=== PATIENT | female | born 1945 | race Caucasian/White ===

== ENCOUNTER → 2018-05-23 13:40 | Outpatient (CLI) | payer MEDICARE, SELFPAY | PROVIDERS: Family Provider Family Medicine; PCP Family Medicine; Visit Provider Family Medicine | DX: J44.1 Chronic obstructive pulmonary disease with (acute) exacerbation (principal) | CPT/HCPCS: 87070; 87205 ==

== ENCOUNTER → 2018-09-03 11:12 | Outpatient (CLI) | payer MEDICARE, SELFPAY ==
[2018-09-03 12:00] LABS: Influenza A and B by PCR Rapid Negative (Negative)
== END ==
PROVIDERS: Family Provider Family Medicine; PCP Family Medicine; Visit Provider Family Medicine
DX: J11.1 Influenza due to unidentified influenza virus with other respiratory manifestations (principal)
CPT/HCPCS: 87400

== ENCOUNTER → 2019-05-15 09:11 | Outpatient (CLI) | payer MEDICARE, SELFPAY ==
[2019-05-15 10:17] LABS: BUN Creatinine Ratio 22.5 (6-22); Blood Urea Nitrogen 9 mg/dL (7-17); Calcium 9.3 mg/dL (8.4-10.2); Carbon Dioxide 39 mmol/L (22-32); Chloride 97 mmol/L (98-107); Estimated Glomerular Filt Rate > 60.0 mL/min (>60); Glucose 103 mg/dL (80-110); HEMOLYSIS < 15 (0-50); Potassium 4.3 mmol/L (3.4-5.1); Sodium 141 mmol/L (137-145)
== END ==
PROVIDERS: PCP Family Medicine; Visit Provider Family Medicine
DX: I87.303 Chronic venous hypertension (idiopathic) without complications of bilateral lower extremity (principal)
CPT/HCPCS: 36415; 80048

== ENCOUNTER → 2019-11-23 12:53 | Outpatient (CLI) | payer MEDICARE, SELFPAY ==
[2019-11-23 15:23] LABS: BUN Creatinine Ratio 23.6 (6-22); Blood Urea Nitrogen 13 mg/dL (7-17); Calcium 9.6 mg/dL (8.4-10.2); Chloride 92 mmol/L (98-107); Estimated Glomerular Filt Rate > 60.0 mL/min (>60); Glucose 135 mg/dL (80-110); HEMOLYSIS < 15 (0-50); Potassium 4.1 mmol/L (3.4-5.1); Sodium 137 mmol/L (137-145)
[2019-11-23 15:29] LABS: Carbon Dioxide 37 mmol/L (22-32)
[2019-11-23 15:31] LABS: NT-proBNP (BNP-Adult 18+) 123 pg/mL (<125)
== END ==
PROVIDERS: PCP Family Medicine; Referring Provider Family Medicine; Visit Provider Family Medicine
DX: I87.303 Chronic venous hypertension (idiopathic) without complications of bilateral lower extremity (principal); J96.10 Chronic respiratory failure, unspecified whether with hypoxia or hypercapnia; R03.0 Elevated blood-pressure reading, without diagnosis of hypertension; F44.1 Dissociative fugue; R06.2 Wheezing
CPT/HCPCS: 36415; 80048; 83880

== ENCOUNTER → 2019-12-14 09:55 | Outpatient (CLI) | payer MEDICARE, SELFPAY ==
--- NOTE | 2019-12-14 | DI.CT.S_ITS ---
PROCEDURE: CT SINUS SCREEN WO CON INDICATIONS: Chronic rhinitis TECHNIQUE: Noncontrast 3.0 mm axial images acquired from the frontal sinuses to the mid-sella, with coronal and sagittal reformats. For radiation dose reduction, the following was used: automated exposure control, adjustment of mA and/or kV according to patient size. COMPARISON: [facility], CT, SINUS SCREEN WO CONTRAST, 05/21/2014, 12:38. FINDINGS: Image quality: Excellent. Mild right maxillary sinus mucosal thickening. Ethmoid Air Cells: No bony remodeling or destruction. Sinuses are clear. Sphenoid Sinuses: No bony remodeling or destruction. Sinuses are clear. Frontal Sinuses: No bony remodeling or destruction. Sinuses are clear. Ostiomeatal Complexes: Ostiomeatal complexes are patent. No Heather cells. Miscellaneous: Visualized intra-orbital contents are normal. No sunita bullosa or paradoxical turbinate curvature. No nasal septal deviation. IMPRESSION: Mild right maxillary sinus disease, improved since 05/21/14. Remaining paranasal sinuses clear Dictated by: Israel Jordan M.D. on 12/14/2019 at 10:51 Approved by: Israel Jordan M.D. on 12/14/2019 at 11:02
== END ==
PROVIDERS: PCP Family Medicine; Referring Provider Otolaryngology; Visit Provider Otolaryngology
DX: J32.8 Other chronic sinusitis (principal); J31.0 Chronic rhinitis; J34.89 Other specified disorders of nose and nasal sinuses; R51 Headache
CPT/HCPCS: 70486

== ENCOUNTER → 2020-01-06 09:47 | Outpatient (CLI) | payer MEDICARE, SELFPAY | PROVIDERS: PCP Family Medicine; Referring Provider Family Medicine; Visit Provider Family Medicine | DX: J44.9 Chronic obstructive pulmonary disease, unspecified (principal) | CPT/HCPCS: 87070; 87205 ==

== ENCOUNTER 2020-01-18 10:37 | Emergency (ER) | payer MEDICARE, SELFPAY ==
[2020-01-18] VITALS (8 sets, daily range): BP systolic 141–185; BP diastolic 71–84; PULSE 108–120; RESP 20–22; TEMP 36.4; O2SAT 90–94
--- NOTE | 2020-01-18 11:39 | ED_ITS ---
HPI - Epistaxis General Chief complaint: Nasal Problem Stated complaint: Nosebleed Time Seen by Provider: 01/18/20 10:45 Source: patient Mode of arrival: EMS Limitations: no limitations History of Present Illness HPI Narrative: Patient is a 74-year-old female on aspirin who presents with left sided epistaxis. she prior history of epistaxis but this past, this 1 started this morning. Quite severe in going down her throat. She is on home oxygen for COPD but has a humidifier at home Related Data Home Medications Medication Instructions Recorded Confirmed ASPIRIN (#ASPIRIN) 81 mg PO QDAY #0 05/10/11 01/04/20 fluticasone propionate 1 spray INTRANASAL BID #0 05/02/16 01/04/20 Previous Rx's Medication Instructions Recorded Disabled Parking Permit #1 ea 05/30/18 albuterol sulfate 90 mcg/actuation 2 puff INHALATION Q4HP PRN #6 inh 11/10/18 aerosol inhaler budesonide-formoterol HFA 160 2 puff INHALATION BID #30 gm 09/18/19 mcg-4.5 mcg/actuation aerosol inhaler potassium chloride 20 mEq 10 meq PO .COMPLEX #0 tab 10/02/19 tablet,extended release(part/cryst) azithromycin 250 mg tablet 250 mg PO 3XW #36 tab 10/28/19 famotidine 20 mg tablet 20 mg PO BID #60 tab 10/28/19 tiotropium bromide 18 mcg capsule 18 mcg INHALATION QDAY #90 11/11/19 with inhalation device inhalation furosemide 20 mg tablet 40 mg PO QDAY #180 tab 11/20/19 prednisone 10 mg tablet 20 mg PO DAILY #60 tab 01/04/20 amoxicillin 875 mg-potassium 1 tab PO BID #20 tab 01/08/20 clavulanate 125 mg tablet ipratropium bromide 0.03 % nasal 2 spray NASAL BID #30 ml 01/15/20 spray Allergies Allergy/AdvReac Type Severity Reaction Status Date / Time No Known Allergies Allergy Uncoded 01/04/20 11:46 Review of Systems Review of Systems Narrative: GENERAL: Denies chills,fever HEENT: See HPI RESPIRATORY: Denies dyspnea, cough, wheezing CARDIOVASCULAR: Denies chest pain, palpitations GASTROINTESTINAL: Denies nausea, vomiting MUSCULOSKELETAL: Denies extremity pain, injury SKIN: No rash, no laceration, no pruritus NEUROLOGIC: Denies weakness, dizziness, headache, numbness 8 point review of systems is negative except for those stated above and HPI Patient History Medical History (Updated 01/18/20 @ 12:51 by Rhonda Salgado DO) Asthma (Chronic ~2000) Boils (Resolved 2013) Cataract (Resolved 2012) COPD (chronic obstructive pulmonary disease) (Chronic ~2000) Measles (Resolved 1963) Pelvis fracture (Resolved ~1950) Rubella (Resolved) Surgical History Anesthesia (Resolved) H/O flexible sigmoidoscopy (Resolved 11/03/98) History of cataract removal with insertion of prosthetic lens (Resolved 06/17/12 ) History of cataract removal with insertion of prosthetic lens (Resolved 07/01/12) History of dental surgery (Resolved ~1982) Family History Brother Age: 78 Skin cancer Father Colon cancer Mother Lung cancer Breast cancer Sister Age: 77 Skin cancer Social History Smoking Status: Former smoker Smoking Status: Former smoker Substance Use Type: does not use Exam Initial Vital Signs Initial Vital Signs: Vital Signs Temperature 97.6 F 01/18/20 11:00 Pulse Rate 108 H 01/18/20 11:00 Respiratory Rate 22 01/18/20 11:00 Blood Pressure 177/84 H 01/18/20 11:00 Pulse Oximetry 92 01/18/20 11:00 GENERAL: Well-appearing, well-nourished and in no acute distress. CARDIOVASCULAR: peripheral pulses in tact, cap refill <2 sec RESPIRATORY: No respiratory distress, speaks in full sentences without difficulty [ABDOMEN: Soft, nontender, no guarding or rebound] EXTREMITIES: Normal range of motion, no clubbing or edema. Neurovascularly intact NEUROLOGICAL: Cranial nerves II through XII grossly intact. Normal gait and speech. SKIN: Warm, dry, no petechiae, no rashes or lesions. Procedures Epistaxis Control Time Out Performed: Yes Nostril: left Nose Prepped With: oxymetazoline Cautery Used: silver nitrate Device Inserted: hemostatic balloon Patient Tolerated Procedure: well Complications: other (Initial posterior nasal balloon use. Patient continues to have some oozing but overall significant improvement. Silver nitrate used to cauterize) Course Orders Ordered: Discontinued Medications Oxymetazoline HCl (Afrin) 2 sprays NASAL NOW ONE Stop: 01/18/20 11:29 Last Admin: 01/18/20 11:51 Dose: 2 sprays Documented by: SCOTTIE Silver Nitrate/Potassium Nitrate (Silver Nitrate Stick) 1 each TOP NOW ONE Stop: 01/18/20 12:40 Last Admin: 01/18/20 12:44 Dose: 1 each Documented by: SCOTTIE Vital Signs Vital signs: Vital Signs - 8 hr 01/18/20 11:00 01/18/20 11:20 01/18/20 11:30 Temperature 97.6 F Pulse Rate 108 H 116 H 120 H Respiratory Rate 22 Blood Pressure 177/84 H 185/82 H Pulse Oximetry 92 90 L 91 01/18/20 12:00 01/18/20 12:01 01/18/20 12:07 Temperature Pulse Rate 113 H 116 H 114 H Respiratory Rate Blood Pressure 141/71 H Pulse Oximetry 92 92 93 01/18/20 12:30 01/18/20 13:15 Temperature Pulse Rate 115 H 115 H Respiratory Rate 20 Blood Pressure 152/80 H 165/71 H Pulse Oximetry 93 94 MDM - Epistaxis MDM Narrative Medical decision making narrative: Epistaxis controlled after silver nitrate. Patient is using a humidifier at home she is on chronic O2 for COPD. Recommend using her O2 mask for a bit. Discharge Plan Departure Patient Disposition: Home Clinical Impression: Acute anterior epistaxis Discharge Date/Time: 01/18/20 13:15 Instructions: DI for Nosebleed Activity Restrictions/Additional Instructions: *You have been diagnosed with nose bleed *What to do: With recommend using your mask for oxygen for the next day or so be sure to use your nasal humidifier. If bleeding starts again place clamp and tilt head forward is hold pressure for 20-30 minutes. If continuing to bleed or going down throat and severe nosebleed return to ER *Continue to take medications as directed *Follow up with your primary care provider in 2-3 days *Return to ER if you should have persistent nose bleed despite actions above, difficulty breathing or any new, worsening or concerning symptoms Prescriptions: No Action ASPIRIN (#ASPIRIN) 81 mg PO QDAY Qty: 0 RF: 0 fluticasone propionate 16 GM spray,suspension 1 spray Intranasal BID Qty: 0 RF: 0 albuterol sulfate [Ventolin HFA] 90 mcg/actuation HFA aerosol inhaler 2 puff INHALATION Q4HP PRN (Reason: shortness of breath or wheezing) Qty: 6 RF: 3 Symbicort 160-4.5 mcg/actuation HFA aerosol inhaler 2 puff Inhalation BID Qty: 30 RF: 3 potassium chloride [Klor-Con M20] 20 mEq tablet,ER particles/crystals 10 meq PO .COMPLEX Qty: 0 RF: 1 azithromycin 250 mg tablet 250 mg PO 3XW Qty: 36 RF: 0 Hold Instructions: treating acute sinusitus amoxicillin-pot clavulanate [Augmentin] 875-125 mg tablet 1 tab PO BID Qty: 20 RF: 0 ipratropium bromide 0.03 % spray,non-aerosol 2 spray NASAL BID Qty: 30 RF: 5 (DME) Disabled Parking Permit Qty: 1 RF: 0 Spiriva with HandiHaler 18 mcg capsule, w/inhalation device 18 mcg INHALATION QDAY Qty: 90 RF: 3 famotidine 20 mg tablet 20 mg PO BID Qty: 60 RF: 1 furosemide [Lasix] 20 mg tablet 40 mg PO QDAY Qty: 180 RF: 1 prednisone 10 mg tablet 20 mg PO DAILY Qty: 60 RF: 0 Referrals: Lyndsay Ruelas DO [Primary Care Provider] -
--- NOTE | 2020-01-18 11:42 | PC.NURSE ---
suction at bedside, pt understands how to use yanker. Caleb, [employer] has provided afrin to nares.
[2020-01-18] MEDS: OXYMETAZOLINE NASAL SPRAY 30 ML 2 SPRAYS NASAL (11:51)
[2020-01-18] MEDS: SILVER NITRATE STICK 1 EACH TOP (12:44)
== END 2020-01-18 13:15 | disposition home or self-care (01) ==
PROVIDERS: Emergency Provider Emergency Medicine; PCP Family Medicine
DX: R04.0 Epistaxis (principal); J44.9 Chronic obstructive pulmonary disease, unspecified; Z79.82 Long term (current) use of aspirin
CPT/HCPCS: 30905; 99282

== ENCOUNTER 2020-02-10 16:47 | Emergency (ER) | payer MEDICARE, SELFPAY ==
[2020-02-10 16:50] VITALS: BP 178/80; PULSE 107; RESP 22; TEMP 36.1; O2SAT 97
--- NOTE | 2020-02-10 16:59 | DI.RAD.S_ITS ---
PROCEDURE: XR CHEST 2V INDICATIONS: shortness of breath TECHNIQUE: 2 views of the chest were acquired. COMPARISON: [facility], CHEST 2 VIEW, 03/21/2016, 11:41. [facility], CHEST 2 VIEW, 02/28/2015, 10:56. FINDINGS: Surgical changes and devices: None. Lungs and pleura: Lungs are abnormal, with pulmonary hyperexpansion consistent with severe COPD. No pleural effusions or pneumothorax. Mediastinum: Mediastinal contours are normal. Heart size is normal. Bones and chest wall: No suspicious bony abnormalities. Soft tissues appear unremarkable. IMPRESSION: Severe COPD, no definite acute disease with reference to prior studies in this patient with longstanding smoking history and mild interstitial prominence. A mass lesion or focal pneumonia is not found. Dictated by: Korey Ty M.D. on 02/10/2020 at 17:28 Approved by: Korey Ty M.D. on 02/10/2020 at 17:29
[2020-02-10 17:21] LABS: Add Manual Diff / Slide Review NO; Basophils Absolute Auto 0 /uL (0-100); Basophils Percent Auto 0.4 % (0-2); Eosinophils Absolute Auto 0 /uL (0-450); Eosinophils Percent Auto 0.1 % (2-4); Hematocrit 40.3 % (36-46); Hemoglobin 13.2 g/dL (12.0-16.0); Lymphocytes Absolute Auto 1000 /uL (1100-4500); Lymphocytes Percent Auto 8.9 % (25-40); Mean Corpuscular HGB Conc 32.7 % (30-36); Mean Corpuscular Hemoglobin 30.5 PG (26-34); Mean Corpuscular Volume 93.5 fL (80-100); Monocytes Absolute Auto 300 /uL (0-900); Monocytes Percent Auto 2.9 % (3-14); Neutrophils Absolute Auto 9500 /uL (1500-7000); Neutrophils Percent Auto 87.7 % (50-75); Platelet Count 270 X10^3/uL (150-400); Red Blood Cell Count 4.31 X10^6/uL (4.0-5.2); Red Cell Distribution Width 13.6 % (11.6-14.8); White Blood Cell Count 10.9 X10^3/uL (4.5-11.0)
[2020-02-10 17:33] LABS: Alanine Aminotransferase 21 IU/L (<35); Albumin 3.9 g/dL (3.5-5.0); Albumin Globulin Ratio 1.3 (1.0-2.8); Alkaline Phosphatase 70 U/L (38-126); Aspartate Aminotransferase 25 IU/L (14-36); BUN Creatinine Ratio 24.5 (6-22); Bilirubin Total 0.5 mg/dL (0.2-1.3); Blood Urea Nitrogen 13 mg/dL (7-17); Chloride 93 mmol/L (98-107); Estimated Glomerular Filt Rate > 60.0 mL/min (>60); Globulin 2.9 g/dL (1.7-4.1); Glucose 141 mg/dL (80-110); HEMOLYSIS < 15 (0-50); Lactate (Lactic Acid) 1.2 mmol/L (0.7-2.1); Potassium 4.3 mmol/L (3.4-5.1); Sodium 135 mmol/L (137-145); Total Protein 6.8 g/dL (6.3-8.2)
[2020-02-10 17:34] VITALS: BP 146/73
[2020-02-10] MEDS: IPRATROPIUM/ALBUTEROL PREPACK 1 BOX MISC (17:38)
[2020-02-10 17:39] VITALS: PULSE 108; RESP 22; O2SAT 93
[2020-02-10 17:39] LABS: Carbon Dioxide 36 mmol/L (22-32)
[2020-02-10 19:00] VITALS: BP 140/65; PULSE 97; RESP 23; O2SAT 98
--- NOTE | 2020-02-10 19:19 | ED.GENADULT ---
HPI - General Adult General Chief complaint: Shortness of Breath/Dyspnea Stated complaint: not breathing well Time Seen by Provider: 02/10/20 17:11 Source: patient Mode of arrival: Ambulatory Limitations: no limitations History of Present Illness HPI narrative: 74-year-old female with a history of COPD. Is on oxygen at home here for evaluation of episodes that she has been having for some time now. She describes the episodes as havingA thick white substance in her mouth. She states that she is not coughing the substance up. She states that she thinks it may be coming from her nasal passages. She states that her throat is very dry. She denies any fevers. No chest pain. She states she has talk with her primary doctor about this. She is on humidification with her nasal cannula. Has seen ENT. Has not seen dental. She states that primary doctor thinks that it may be the steroids she is on for her COPD however when she tries to taper off of the steroids she has worsening COPD symptoms. Related Data Home Medications Medication Instructions Recorded Confirmed ASPIRIN (#ASPIRIN) 81 mg PO QDAY #0 05/10/11 02/03/20 Previous Rx's Medication Instructions Recorded Disabled Parking Permit #1 ea 05/30/18 albuterol sulfate 90 mcg/actuation 2 puff INHALATION Q4HP PRN #6 inh 11/10/18 aerosol inhaler budesonide-formoterol HFA 160 2 puff INHALATION BID #30 gm 09/18/19 mcg-4.5 mcg/actuation aerosol inhaler potassium chloride 20 mEq 10 meq PO .COMPLEX #0 tab 10/02/19 tablet,extended release(part/cryst) famotidine 20 mg tablet 20 mg PO BID #60 tab 10/28/19 tiotropium bromide 18 mcg capsule 18 mcg INHALATION QDAY #90 11/11/19 with inhalation device inhalation furosemide 20 mg tablet 40 mg PO QDAY #180 tab 11/20/19 ipratropium bromide 0.03 % nasal 2 spray NASAL BID #30 ml 01/15/20 spray azithromycin 250 mg tablet 250 mg PO 3XW #36 tab 01/27/20 prednisone 20 mg tablet 30 mg PO DAILY #60 tab 02/09/20 Allergies Allergy/AdvReac Type Severity Reaction Status Date / Time No Known Drug Allergies Allergy Verified 02/10/20 17:18 Review of Systems Constitutional Constitutional: Denies fever(s) and Denies headache(s) ENT Ears, Nose, Mouth, and Throat: Reports otalgia, Denies headache(s), Reports epistaxis, Reports sinus pressure and Reports sore throat Comments: Dry mouth Cardiovascular Cardiovascular: Denies chest pain and Reports dyspnea Respiratory Respiratory: Denies cough and Reports dyspnea Gastrointestinal Gastrointestinal: Denies nausea and Denies vomiting Integumentary/Breasts Skin/Breast: Denies rash Neurologic Neurologic: Denies behavioral changes and Denies headache(s) Psychiatric Psychiatric: Denies behavioral changes Hematologic/Lymphatic Hematologic/Lymphatic: Denies easy bleeding and Denies easy bruising Patient History Medical History Asthma (Chronic ~2000) Boils (Resolved 2013) Cataract (Resolved 2012) COPD (chronic obstructive pulmonary disease) (Chronic ~2000) Measles (Resolved 1963) Pelvis fracture (Resolved ~1950) Rubella (Resolved) Surgical History Anesthesia (Resolved) H/O flexible sigmoidoscopy (Resolved 11/03/98) History of cataract removal with insertion of prosthetic lens (Resolved 06/17/12) History of cataract removal with insertion of prosthetic lens (Resolved 07/01/12) History of dental surgery (Resolved ~1982) Family History Brother Age: 79 Skin cancer Father Colon cancer Mother Lung cancer Breast cancer Sister Age: 78 Skin cancer Social History Smoking Status: Former smoker Smoking Status: Former smoker Substance Use Type: does not use Exam Initial Vital Signs Initial Vital Signs: Vital Signs Temperature 96.9 F L 02/10/20 16:50 Pulse Rate 107 H 02/10/20 16:50 Respiratory Rate 22 02/10/20 16:50 Blood Pressure 178/80 H 02/10/20 16:50 Pulse Oximetry 97 02/10/20 16:50 Const Limitations: mental status not altered HENMT Head: normal to inspection and normocephalic Ears: TM's normal bilaterally Nose: external nose normal Face and sinus: normal facial exam Mouth: lip normal, tongue normal, No moist mucous membranes and No drooling Throat: posterior oropharynx normal Resp Effort & Inspection: not labored and tachypneic Cardio Rate: regular rate Skin Lesions: no lesions Rashes: no rashes Extrem General: normal to inspection, capillary refill normal and No edema Psych Appearance: grossly normal and well kempt Course Orders Ordered: ED Orders 02/10/20 16:59 XR chest 2V Stat EKG-12 Lead Stat Measure peak expiratory flow ONCE RT Consult Eval and Treat Now 02/10/20 17:15 Complete Blood Count AUTO DIFF Stat Comprehensive Metabolic Panel Stat Lactate (Lactic Acid) Stat Discontinued Medications Albuterol/Ipratropium (Combivent Prepack) 1 box MISC SEEINSTR ONE Stop: 02/10/20 17:16 Last Admin: 02/10/20 17:38 Dose: 1 box Documented by: MAX Vital Signs Vital signs: Vital Signs - 8 hr 02/10/20 19:00 Pulse Rate 97 H Respiratory Rate 23 Blood Pressure 140/65 Pulse Oximetry 98 Medical Decision Making Lab Data Lab results reviewed: Yes I reviewed the patient's lab results. Result diagrams: 02/10/20 17:15 02/10/20 17:15 Labs: Lab Results 02/10/20 02/10/20 02/10/20 Range/Units 17:15 17:15 17:15 WBC 10.9 (4.5-11.0) X10^3/uL RBC 4.31 (4.0-5.2) X10^6/uL Hgb 13.2 (12.0-16.0) g/dL Hct 40.3 (36-46) % MCV 93.5 (80-100) fL MCH 30.5 (26-34) PG MCHC 32.7 (30-36) % RDW 13.6 (11.6-14.8) % Plt Count 270 (150-400) X10^3/uL Neut % (Auto) 87.7 H (50-75) % Lymph % (Auto) 8.9 L (25-40) % [place] % (Auto) 2.9 L (3-14) % Eos % (Auto) 0.1 L (2-4) % Baso % (Auto) 0.4 (0-2) % Neut # (Auto) 9500 H (4124-3169) /uL Lymph # (Auto) 1000 L (3906-9619) /uL [place] # (Auto) 300 (0-900) /uL Eos # (Auto) 0 (0-450) /uL Baso # (Auto) 0 (0-100) /uL Sodium 135 L (137-145) mmol/L Potassium 4.3 (3.4-5.1) mmol/L Chloride 93 L (98-107) mmol/L Carbon Dioxide 36 H (22-32) mmol/L BUN 13 (7-17) mg/dL Creatinine 0.53 (0.52-1.04) mg/dL Estimated GFR > 60.0 (>60) mL/min BUN/Creatinine Ratio 24.5 H (6-22) Glucose 141 H (80-110) mg/dL Lactate 1.2 (0.7-2.1) mmol/L Calcium 9.0 (8.4-10.2) mg/dL Total Bilirubin 0.5 (0.2-1.3) mg/dL AST 25 (14-36) IU/L ALT 21 (<35) IU/L Alkaline Phosphatase 70 (38-126) U/L Total Protein 6.8 (6.3-8.2) g/dL Albumin 3.9 (3.5-5.0) g/dL Globulin 2.9 (1.7-4.1) g/dL Albumin/Globulin Ratio 1.3 (1.0-2.8) Imaging Data Chest x-ray: Radiologist's Impression: [address] [address] XRay Report Signed Patient: Dorothy Metzger MMR#: [id number] : [id number]:[id number] Age/Sex: 74 / FDate of Service: 02/10/20 Loc: ED Accession Number: [id number] Procedure: XR chest 2V Ordering Provider: Raissa Fontanez MD PROCEDURE: XR CHEST 2V INDICATIONS: shortness of breath TECHNIQUE: 2 views of the chest were acquired. COMPARISON: [facility], CHEST 2 VIEW, 03/21/2016, 11:41. [facility], CHEST 2 VIEW, 02/28/2015, 10:56. FINDINGS: Surgical changes and devices: None. Lungs and pleura: Lungs are abnormal, with pulmonary hyperexpansion consistent with severe COPD. No pleural effusions or pneumothorax. Mediastinum: Mediastinal contours are normal. Heart size is normal. Bones and chest wall: No suspicious bony abnormalities. Soft tissues appear unremarkable. IMPRESSION: Severe COPD, no definite acute disease with reference to prior studies in this patient with longstanding smoking history and mild interstitial prominence. A mass lesion or focal pneumonia is not found. Dictated by: Korey Ty M.D. on 02/10/2020 at 17:28 Approved by: Korey Ty M.D. on 02/10/2020 at 17:29 [facility] Narrative Medical decision making narrative: Patient reports that she is at her baseline respiratory status. She is not having any fevers. She is on oxygen at home. The reason she is here is because she is having a very dry mouth and a thick white sputum. She is not coughing. After long discussion with the patient appears that the symptoms that brought her into the ER today are not necessarily new for her. She is on decongestants. She is also on nasal steroids. She is also on prednisone. The suspect that all of the steroids are causing dry mouth she is also on humidified oxygen which being on oxygen is self causes these issues as well. She has seen ENT about the symptoms in was told that there is little that they can do. She has not seen her dentist. She has tried to taper off the steroids under the direction of her primary doctor but then and her COPD worsens. Unfortunately I am not sure if there is much more we can offer under the emergency department. We did discuss other mouth rinses to include biotene. Patient can purchase this [id number]. I also recommended that she contact her dentist is May. Dentist would have another opinion about what she can try. I do not feel the patient needs admitted to the hospital. No indication for antibiotics. Patient was given return precautions. She expressed understanding and agreement. Discharge Plan Departure Patient Disposition: Home Clinical Impression: Dry mouth Discharge Date/Time: 02/10/20 19:30 Activity Restrictions/Additional Instructions: A throat culture was obtained today and is pending at the time of your discharge. This does take a couple days to come back. I recommend that you try Biotene. This is a mouthwash that can be purchased [id number]. This may help with the dry mouth. Contact your primary provider for follow-up. Return to the emergency department for any new or worsening symptoms Prescriptions: No Action ASPIRIN (#ASPIRIN) 81 mg PO QDAY Qty: 0 RF: 0 albuterol sulfate [Ventolin HFA] 90 mcg/actuation HFA aerosol inhaler 2 puff INHALATION Q4HP PRN (Reason: shortness of breath or wheezing) Qty: 6 RF: 3 Symbicort 160-4.5 mcg/actuation HFA aerosol inhaler 2 puff Inhalation BID Qty: 30 RF: 3 potassium chloride [Klor-Con M20] 20 mEq tablet,ER particles/crystals 10 meq PO .COMPLEX Qty: 0 RF: 1 ipratropium bromide 0.03 % spray,non-aerosol 2 spray NASAL BID Qty: 30 RF: 5 azithromycin 250 mg tablet 250 mg PO 3XW Qty: 36 RF: 0 Hold Instructions: treating acute sinusitus prednisone 20 mg tablet 30 mg PO DAILY Qty: 60 RF: 0 (DME) Disabled Parking Permit Qty: 1 RF: 0 Spiriva with HandiHaler 18 mcg capsule, w/inhalation device 18 mcg INHALATION QDAY Qty: 90 RF: 3 famotidine 20 mg tablet 20 mg PO BID Qty: 60 RF: 1 furosemide [Lasix] 20 mg tablet 40 mg PO QDAY Qty: 180 RF: 1 Referrals: Lyndsay Ruelas DO [Primary Care Provider] -
== END 2020-02-10 19:30 | disposition home or self-care (01) ==
PROVIDERS: Emergency Medicine; Emergency Provider Emergency Medicine; PCP Family Medicine
DX: R68.2 Dry mouth, unspecified (principal); J44.9 Chronic obstructive pulmonary disease, unspecified
CPT/HCPCS: 36415; 71046; 80053; 83605; 85025; 93005; 94150; 94640; 99284

== ENCOUNTER → 2020-02-15 11:55 | Outpatient (CLI) | payer MEDICARE, SELFPAY | PROVIDERS: PCP Family Medicine; Visit Provider Family Medicine | DX: R68.2 Dry mouth, unspecified (principal) | CPT/HCPCS: 87070 ==

== ENCOUNTER 2020-02-21 18:14 | Emergency (ER) | payer MEDICARE, SELFPAY ==
[2020-02-21] VITALS (20 sets, daily range): BP systolic 134–180; BP diastolic 67–84; PULSE 84–108; RESP 20–30; TEMP 36.9; O2SAT 95–100
--- NOTE | 2020-02-21 18:28 | DI.RAD.S_ITS ---
PROCEDURE: XR CHEST 2V INDICATIONS: shortness of breath TECHNIQUE: 2 views of the chest were acquired. COMPARISON: [facility], CR, XR CHEST 2V, 02/10/2020, 16:49. FINDINGS: Surgical changes and devices: None. Lungs and pleura: Lungs are clear. Azygos lobe redemonstrated. No pleural effusions or pneumothorax. Mediastinum: Mediastinal contours are normal. Heart size is normal. Bones and chest wall: No suspicious bony abnormalities. Soft tissues appear unremarkable. IMPRESSION: No acute cardiopulmonary findings. Dictated by: Jennifer Kasper M.D. on 02/21/2020 at 19:29 Approved by: Jennifer Kasper M.D. on 02/21/2020 at 19:29
[2020-02-21 18:44] LABS: Add Manual Diff / Slide Review NO; Basophils Absolute Auto 0 /uL (0-100); Basophils Percent Auto 0.3 % (0-2); Eosinophils Absolute Auto 0 /uL (0-450); Eosinophils Percent Auto 0.3 % (2-4); Hematocrit 39.3 % (36-46); Hemoglobin 12.8 g/dL (12.0-16.0); Lymphocytes Absolute Auto 1500 /uL (1100-4500); Lymphocytes Percent Auto 11.2 % (25-40); Mean Corpuscular HGB Conc 32.5 % (30-36); Mean Corpuscular Hemoglobin 30.6 PG (26-34); Mean Corpuscular Volume 94.2 fL (80-100); Monocytes Absolute Auto 800 /uL (0-900); Monocytes Percent Auto 5.9 % (3-14); Neutrophils Absolute Auto 11000 /uL (1500-7000); Neutrophils Percent Auto 82.3 % (50-75); Platelet Count 263 X10^3/uL (150-400); Red Blood Cell Count 4.17 X10^6/uL (4.0-5.2); Red Cell Distribution Width 13.5 % (11.6-14.8); White Blood Cell Count 13.4 X10^3/uL (4.5-11.0)
--- NOTE | 2020-02-21 18:45 | ED.SOB ---
HPI - SOB/Dyspnea General Chief Complaint: Shortness of Breath/Dyspnea Stated Complaint: cant breathe, shoulder/back pain Time Seen by Provider: 02/21/20 18:32 Source: patient Mode of arrival: Wheelchair Limitations: no limitations History of Present Illness HPI Narrative: 74-year-old woman with a history of reflux, asthma, 2 weeks of azithromycin discontinued February 18 with prednisone at 20 mg daily, as well as congestive heart failure with Lasix decreased from 40 mg to 20 mg on February 14, presents with increasing dyspnea over the course of today. She notes that since decreasing her Lasix her ankles are more swollen. She has not been significantly more dyspneic and has been stable on her usual 3 L of home oxygen until this afternoon. She notes that she was worse with exertion and then after laying down was dramatically worsened presents to the emergency room able to speak in full sentences but tripoding and using accessory muscles to breathe without significant wheezing appreciated. She has a history of leukoplakia and notes that every time she has more of the ?white stuff in her mouth? her breathing gets worse. She did note an increase in the ?white stuff in her mouth? today. A culture had been done of this on February 14 that reveals normal oral carlos. She also complains of significant right sided chest wall pain that is significant enough that is limiting her physical ability to breathe, she describes a itching sensation over the skin (no obvious rash to suggest zoster outbreak starting yet) Related Data Home Medications Medication Instructions Recorded Confirmed ASPIRIN (#ASPIRIN) 81 mg PO QDAY #0 05/10/11 02/15/20 Previous Rx's Medication Instructions Recorded Disabled Parking Permit #1 ea 05/30/18 albuterol sulfate 90 mcg/actuation 2 puff INHALATION Q4HP PRN #6 inh 11/10/18 aerosol inhaler budesonide-formoterol HFA 160 2 puff INHALATION BID #30 gm 09/18/19 mcg-4.5 mcg/actuation aerosol inhaler potassium chloride 20 mEq 10 meq PO .COMPLEX #0 tab 10/02/19 tablet,extended release(part/cryst) famotidine 20 mg tablet 20 mg PO BID #60 tab 10/28/19 tiotropium bromide 18 mcg capsule 18 mcg INHALATION QDAY #90 11/11/19 with inhalation device inhalation ipratropium bromide 0.03 % nasal 2 spray NASAL BID #30 ml 01/15/20 spray azithromycin 250 mg tablet 250 mg PO 3XW #36 tab 01/27/20 prednisone 20 mg tablet 30 mg PO DAILY #60 tab 02/09/20 prednisone 5 mg tablet 5 mg PO DAILY #6 tab 02/11/20 furosemide 20 mg tablet 20 mg PO QDAY #90 tab 02/15/20 omeprazole 40 mg capsule,delayed 40 mg PO DAILY #30 cap 02/15/20 release clotrimazole 10 mg MM 5XD #60 tab 02/22/20 Allergies Allergy/AdvReac Type Severity Reaction Status Date / Time No Known Drug Allergies Allergy Verified 02/21/20 18:43 Review of Systems Review of Systems Narrative: Pertinent positive and negative findings as per HPI Remainder of review of systems is otherwise unremarkable for Constitutional: Fevers, chills, weakness ENT: No sore throat, neck pain, ear pain CV: Chest pain, palpitations, GI: Nausea, vomiting, diarrhea, change in bowel habits, black or bloody stools : Dysuria, hematuria, flank pain MS: Muscle weakness, numbness, joint swelling or warmth Skin: Rashes, nonhealing lesions Neuro: Syncope, dizziness, tingling Patient History Medical History Asthma (Chronic ~2000) Boils (Resolved 2013) Cataract (Resolved 2012) COPD (chronic obstructive pulmonary disease) (Chronic ~2000) Dry mouth (Acute) Leukoplakia (Acute) Measles (Resolved 1963) Pelvis fracture (Resolved ~1950) Rubella (Resolved) Surgical History Anesthesia (Resolved) H/O flexible sigmoidoscopy (Resolved 11/03/98) History of cataract removal with insertion of prosthetic lens (Resolved 06/17/12) History of cataract removal with insertion of prosthetic lens (Resolved 07/01/12) History of dental surgery (Resolved ~1982) Family History Brother Age: 79 Skin cancer Father Colon cancer Mother Lung cancer Breast cancer Sister Age: 78 Skin cancer Social History Smoking Status: Former smoker Smoking Status: Former smoker Substance Use Type: does not use Exam Narrative Exam Narrative: General: 74-year-old woman sitting on the edge of the bed, try potting and complaining of difficulty breathing on the right side because of pain but Able to give a complete and coherent history. Well-nourished well-developed, and speaking in full sentences HEENT: Dry mucous membranes, he increased erythematous color to her tongue and buccal mucosa without obvious leukoplakia (most consistent with thrush), normal sclera with reactive pupils, Neck: No JVD, supple Respiratory: Lungs without wheezing, minor rales in both lower lung bullock, no rhonchi. Full and symmetrical air movement Chest: Area of itching over the right side of her back just below her scapula has no abnormal skin findings at this time Cardiac: Regular rate and rhythm no murmurs no bruits Abdomen: Soft nontender good bowel tones, no flank pain Skin: Warm and dry, no rashes Neurologic: Grossly neurologically intact with no obvious asymmetries or abnormalities Extremities: No trauma, well perfused, 2+ bilateral lower extremity edema Psych: Cooperative, somewhat anxious Initial Vital Signs Initial Vital Signs: Vital Signs Temperature 98.4 F 02/21/20 18:25 Pulse Rate 108 H 02/21/20 18:25 Respiratory Rate 30 H 02/21/20 18:25 Blood Pressure 134/84 02/21/20 18:25 Pulse Oximetry 96 02/21/20 18:25 Course Orders Ordered: ED Orders 02/21/20 18:28 XR chest 2V Stat EKG-12 Lead Stat Measure peak expiratory flow ONCE RT Consult Eval and Treat Now 02/21/20 18:35 Complete Blood Count AUTO DIFF Stat Comprehensive Metabolic Panel Stat D Dimer Stat Lactate (Lactic Acid) Stat NT-proBNP (BNP-Adult 18+) Stat 02/21/20 21:03 CT angio chest PE protocol Stat 02/21/20 21:15 Troponin I Stat Hydromorphone HCl (Dilaudid) 0.5 mg IV Q15MIN PRN PRN Reason: Pain, Last Admin: 02/21/20 21:32 Dose: 0.5 mg Documented by: GONZALO Discontinued Medications Furosemide (Lasix) 40 mg IV NOW ONE Stop: 02/21/20 21:09 Last Admin: 02/21/20 21:27 Dose: Not Given Documented by: GONZALO Furosemide (Lasix) 40 mg IV NOW ONE Stop: 02/21/20 21:23 Last Admin: 02/21/20 21:31 Dose: 40 mg Documented by: GONZALO Metoclopramide HCl (Reglan) 10 mg IV NOW ONE Stop: 02/21/20 23:24 Last Admin: 02/21/20 23:29 Dose: 10 mg Documented by: KAREN Ondansetron HCl (Zofran) 4 mg IV NOW ONE Stop: 02/21/20 22:05 Last Admin: 02/21/20 22:11 Dose: 4 mg Documented by: GONZALO Vital Signs Vital signs: Vital Signs - 8 hr 02/21/20 18:25 02/21/20 18:29 02/21/20 18:30 Temperature 98.4 F Pulse Rate 108 H 95 H 101 H Respiratory Rate 30 H Blood Pressure 134/84 Pulse Oximetry 96 95 96 02/21/20 18:32 02/21/20 19:00 02/21/20 19:30 Temperature Pulse Rate 100 H 86 90 Respiratory Rate Blood Pressure 134/84 Pulse Oximetry 96 99 99 02/21/20 20:00 02/21/20 20:30 02/21/20 20:31 Temperature Pulse Rate 92 H 91 H Respiratory Rate Blood Pressure 180/77 H 164/77 H Pulse Oximetry 100 100 100 02/21/20 21:00 02/21/20 21:01 02/21/20 21:33 Temperature Pulse Rate 103 H 95 H 103 H Respiratory Rate Blood Pressure 176/80 H Pulse Oximetry 100 100 98 02/21/20 21:42 02/21/20 22:00 02/21/20 22:34 Temperature Pulse Rate 96 H 102 H Respiratory Rate Blood Pressure 173/72 H 167/82 H Pulse Oximetry 97 95 02/21/20 22:35 02/21/20 23:00 02/21/20 23:01 Temperature Pulse Rate 101 H 98 H 84 Respiratory Rate Blood Pressure 155/72 H 167/71 H Pulse Oximetry 95 96 96 02/21/20 23:30 02/21/20 23:31 02/22/20 00:24 Temperature 97.6 F Pulse Rate 84 92 H 98 H Respiratory Rate 20 18 Blood Pressure 158/67 H 172/73 H Pulse Oximetry 95 95 99 MDM - SOB/Dyspnea Medical Records Attestation: I reviewed the patient's medical records. Lab Data Attestation: I reviewed the patient's lab results. Result diagrams: 02/21/20 18:35 02/21/20 18:35 Labs: Lab Results 02/21/20 02/21/20 02/21/20 Range/Units 18:35 18:35 18:35 WBC 13.4 H (4.5-11.0) X10^3/uL RBC 4.17 (4.0-5.2) X10^6/uL Hgb 12.8 (12.0-16.0) g/dL Hct 39.3 (36-46) % MCV 94.2 (80-100) fL MCH 30.6 (26-34) PG MCHC 32.5 (30-36) % RDW 13.5 (11.6-14.8) % Plt Count 263 (150-400) X10^3/uL Neut % (Auto) 82.3 H (50-75) % Lymph % (Auto) 11.2 L (25-40) % [place] % (Auto) 5.9 (3-14) % Eos % (Auto) 0.3 L (2-4) % Baso % (Auto) 0.3 (0-2) % Neut # (Auto) 86127 H (2674-1296) /uL Lymph # (Auto) 1500 (4790-0522) /uL [place] # (Auto) 800 (0-900) /uL Eos # (Auto) 0 (0-450) /uL Baso # (Auto) 0 (0-100) /uL D-Dimer (<230) ng/mL Sodium 136 L (137-145) mmol/L Potassium 4.2 (3.4-5.1) mmol/L Chloride 93 L (98-107) mmol/L Carbon Dioxide 39 H (22-32) mmol/L BUN 12 (7-17) mg/dL Creatinine 0.65 (0.52-1.04) mg/dL Estimated GFR > 60.0 (>60) mL/min BUN/Creatinine Ratio 18.5 (6-22) Glucose 106 (80-110) mg/dL Lactate 1.3 (0.7-2.1) mmol/L Calcium 9.3 (8.4-10.2) mg/dL Total Bilirubin 0.4 (0.2-1.3) mg/dL AST 26 (14-36) IU/L ALT 22 (<35) IU/L Alkaline Phosphatase 79 (38-126) U/L Troponin I (0.01-0.034) ng/mL NT-Pro-B Natriuret Pep (<125) pg/mL Total Protein 6.6 (6.3-8.2) g/dL Albumin 3.8 (3.5-5.0) g/dL Globulin 2.8 (1.7-4.1) g/dL Albumin/Globulin Ratio 1.4 (1.0-2.8) 02/21/20 02/21/20 02/21/20 Range/Units 18:35 18:35 21:15 WBC (4.5-11.0) X10^3/uL RBC (4.0-5.2) X10^6/uL Hgb (12.0-16.0) g/dL Hct (36-46) % MCV (80-100) fL MCH (26-34) PG MCHC (30-36) % RDW (11.6-14.8) % Plt Count (150-400) X10^3/uL Neut % (Auto) (50-75) % Lymph % (Auto) (25-40) % [place] % (Auto) (3-14) % Eos % (Auto) (2-4) % Baso % (Auto) (0-2) % Neut # (Auto) (0748-7524) /uL Lymph # (Auto) (8435-1672) /uL [place] # (Auto) (0-900) /uL Eos # (Auto) (0-450) /uL Baso # (Auto) (0-100) /uL D-Dimer 359 H (<230) ng/mL Sodium (137-145) mmol/L Potassium (3.4-5.1) mmol/L Chloride (98-107) mmol/L Carbon Dioxide (22-32) mmol/L BUN (7-17) mg/dL Creatinine (0.52-1.04) mg/dL Estimated GFR (>60) mL/min BUN/Creatinine Ratio (6-22) Glucose (80-110) mg/dL Lactate (0.7-2.1) mmol/L Calcium (8.4-10.2) mg/dL Total Bilirubin (0.2-1.3) mg/dL AST (14-36) IU/L ALT (<35) IU/L Alkaline Phosphatase (38-126) U/L Troponin I < 0.012 (0.01-0.034) ng/mL NT-Pro-B Natriuret Pep 219 H (<125) pg/mL Total Protein (6.3-8.2) g/dL Albumin (3.5-5.0) g/dL Globulin (1.7-4.1) g/dL Albumin/Globulin Ratio (1.0-2.8) Imaging Data Chest x-ray: Radiologist's Impression: FINDINGS: Surgical changes and devices: None. Lungs and pleura: Lungs are clear. Azygos lobe redemonstrated. No pleural effusions or pneumothorax. Mediastinum: Mediastinal contours are normal. Heart size is normal. Bones and chest wall: No suspicious bony abnormalities. Soft tissues appear unremarkable. IMPRESSION: No acute cardiopulmonary findings. Dictated by: Jennifer Kasper M.D. on 02/21/2020 at 19:29 CT scan - chest: Radiologist's Impression: FINDINGS: Image quality: Excellent. Pulmonary arteries: Pulmonary arteries are normal in size, and demonstrate no intraluminal filling defects to suggest central pulmonary embolism. Lungs and pleura: There is mild centrilobular emphysema with an apical predominance. Pulmonary scar at the anterior bilateral lung bases is redemonstrated and is unchanged from the study dated June 23, 2013. Lungs are clear. No pleural effusions or pneumothorax. Central and peripheral airways are patent. Mediastinum: Heart size is normal, without pericardial effusion. There are scattered atheromatous calcifications within the coronary arteries. No mediastinal or hilar adenopathy. Thoracic aorta is normal in caliber and enhancement. Scattered atheromatous calcifications are present within the aortic arch. Esophagus is normal in caliber, without hiatal hernia. Bones and chest wall: No suspicious bony lesions. Ribs and thoracic spine appear intact throughout. Thyroid gland is unremarkable . No axillary or supraclavicular adenopathy. Abdomen: Visualized upper abdominal solid organs appear normal in the early arterial phase of enhancement. IMPRESSION: 1. No acute pulmonary embolus. 2. Thoracic and coronary artery atheromatous calcifications. Dictated by: Jennifer Kasper M.D. on 02/21/2020 at 21:39 ECG Data Attestation: I personally reviewed and interpreted this ECG as follows: Interpretation: Sinus rhythm with marked sinus arrhythmia at a rate of 98 Normal intervals normal axis Nonspecific ST T wave changes MDM Narrative Medical decision making narrative: With acute dyspnea and right-sided pleuritic chest pain. No evidence of acute pneumothorax. Because of her pain behaviors and tripodding as well as slightly elevated D-dimer, will move to chest CT. Possibility of prodrome all zoster type pain is entertained. Oxygen saturations are at baseline with her usual 3 L there is no significant wheezing appreciated. CT scan of the chest is unremarkable. Pain is significantly improved after Toradol. Nausea was treated with post Zofran and Reglan and is also improved. At this time, I do not have a full explanation for the musculoskeletal pain with which she presented. There is no evidence of acute coronary syndrome, pneumonia, pleural effusion, pulmonary embolism or other life-threatening etiology at this time. She is safe for home discharge Discharge Plan Departure Patient Disposition: Home Clinical Impression: Right-sided chest pain, Candidiasis of mouth Instructions: DI for Thrush, DI for Musculoskeletal Pain Activity Restrictions/Additional Instructions: Thank you for coming in today We did a thorough workup and did not find any evidence for pneumonia, worsening of your chronic COPD, pulmonary embolism, fluid collecting in her lungs, heart attack or heart attack like syndrome. Your pain did get significantly better with Toradol which is very similar to ibuprofen. Should this happen again at home, it is safe for you to use ibuprofen if needed Sometimes shingles can show up with pain before you develop the rash. If you do notice a rash over the next day or to you do need to return to the emergency room receive her primary care physician Regarding the white stuff in your mouth this is thrush likely because of the prednisone you are currently taking. I am going to give you a prescription for clotrimazole troches use for you to use. This has been electronically transmitted to [facility] for you today If you feel that you are getting worse, please return to the ER Prescriptions: New clotrimazole 10 mg compa 10 mg MM 5XD Qty: 60 RF: 0 No Action ASPIRIN (#ASPIRIN) 81 mg PO QDAY Qty: 0 RF: 0 albuterol sulfate [Ventolin HFA] 90 mcg/actuation HFA aerosol inhaler 2 puff INHALATION Q4HP PRN (Reason: shortness of breath or wheezing) Qty: 6 RF: 3 Symbicort 160-4.5 mcg/actuation HFA aerosol inhaler 2 puff Inhalation BID Qty: 30 RF: 3 potassium chloride [Klor-Con M20] 20 mEq tablet,ER particles/crystals 10 meq PO .COMPLEX Qty: 0 RF: 1 ipratropium bromide 0.03 % spray,non-aerosol 2 spray NASAL BID Qty: 30 RF: 5 azithromycin 250 mg tablet 250 mg PO 3XW Qty: 36 RF: 0 Hold Instructions: treating acute sinusitus prednisone 20 mg tablet 30 mg PO DAILY Qty: 60 RF: 0 prednisone 5 mg tablet 5 mg PO DAILY Qty: 6 RF: 0 (DME) Disabled Parking Permit Qty: 1 RF: 0 Spiriva with HandiHaler 18 mcg capsule, w/inhalation device 18 mcg INHALATION QDAY Qty: 90 RF: 3 furosemide [Lasix] 20 mg tablet 20 mg PO QDAY Qty: 90 RF: 1 omeprazole 40 mg capsule,delayed release(DR/EC) 40 mg PO DAILY Qty: 30 RF: 1 famotidine 20 mg tablet 20 mg PO BID Qty: 60 RF: 1 Referrals: Lyndsay Ruelas DO [Primary Care Provider] -
[2020-02-21 18:55] LABS: Lactate (Lactic Acid) 1.3 mmol/L (0.7-2.1)
[2020-02-21 18:56] LABS: Alanine Aminotransferase 22 IU/L (<35); Albumin 3.8 g/dL (3.5-5.0); Albumin Globulin Ratio 1.4 (1.0-2.8); Alkaline Phosphatase 79 U/L (38-126); Aspartate Aminotransferase 26 IU/L (14-36); BUN Creatinine Ratio 18.5 (6-22); Bilirubin Total 0.4 mg/dL (0.2-1.3); Blood Urea Nitrogen 12 mg/dL (7-17); Calcium 9.3 mg/dL (8.4-10.2); Chloride 93 mmol/L (98-107); Estimated Glomerular Filt Rate > 60.0 mL/min (>60); Globulin 2.8 g/dL (1.7-4.1); Glucose 106 mg/dL (80-110); Potassium 4.2 mmol/L (3.4-5.1); Sodium 136 mmol/L (137-145); Total Protein 6.6 g/dL (6.3-8.2)
[2020-02-21 19:02] LABS: Carbon Dioxide 39 mmol/L (22-32); HEMOLYSIS 21 (0-50)
[2020-02-21 19:22] LABS: NT-proBNP (BNP-Adult 18+) 219 pg/mL (<125)
[2020-02-21 19:29] LABS: D Dimer 359 ng/mL (<230)
--- NOTE | 2020-02-21 21:03 | DI.CT.S_ITS ---
PROCEDURE: CT ANGIO CHEST PE PROTOCOL INDICATIONS: pain, dyspnea, elevated d dimer TECHNIQUE: After the administration of intravenous contrast, 2 mm thick sections acquired from the pulmonary apices to the posterior costophrenic angles. 3-dimensional maximum intensity projection (MIP) coronal and sagittal reformats were then acquired through the thorax. For radiation dose reduction, the following was used: automated exposure control, adjustment of mA and/or kV according to patient size. COMPARISON: [facility], CT, PE STUDY (CTA CHEST), 06/23/2013, 14:42. FINDINGS: Image quality: Excellent. Pulmonary arteries: Pulmonary arteries are normal in size, and demonstrate no intraluminal filling defects to suggest central pulmonary embolism. Lungs and pleura: There is mild centrilobular emphysema with an apical predominance. Pulmonary scar at the anterior bilateral lung bases is redemonstrated and is unchanged from the study dated June 23, 2013. Lungs are clear. No pleural effusions or pneumothorax. Central and peripheral airways are patent. Mediastinum: Heart size is normal, without pericardial effusion. There are scattered atheromatous calcifications within the coronary arteries. No mediastinal or hilar adenopathy. Thoracic aorta is normal in caliber and enhancement. Scattered atheromatous calcifications are present within the aortic arch. Esophagus is normal in caliber, without hiatal hernia. Bones and chest wall: No suspicious bony lesions. Ribs and thoracic spine appear intact throughout. Thyroid gland is unremarkable . No axillary or supraclavicular adenopathy. Abdomen: Visualized upper abdominal solid organs appear normal in the early arterial phase of enhancement. IMPRESSION: 1. No acute pulmonary embolus. 2. Thoracic and coronary artery atheromatous calcifications. Dictated by: Jennifer Kasper M.D. on 02/21/2020 at 21:39 Approved by: Jennifer Kasper M.D. on 02/21/2020 at 21:44
[2020-02-21] MEDS: FUROSEMIDE 40 MG/4 ML VIAL IV (21:31)
[2020-02-21] MEDS: HYDROMORPHONE 0.5 MG INJ IV (21:32)
[2020-02-21 21:47] LABS: Troponin I < 0.012 ng/mL (0.01-0.034)
[2020-02-21] MEDS: ONDANSETRON 4 MG/2 ML INJ IV (22:11)
[2020-02-21] MEDS: METOCLOPRAMIDE 10 MG/2 ML INJ IV (23:29)
--- NOTE | 2020-02-21 23:46 | PC.NURSE ---
Pt reports nausea is improved after reglan, now c/o dry mouth. Few ice chips given.
--- NOTE | 2020-02-22 00:20 | PC.NURSE ---
Pt now lying down flat, states her nausea is improved, wants to go home and sleep in her own bed. Dr Fontanez notified, will discharge home.
[2020-02-22 00:24] VITALS: BP 172/73; PULSE 98; RESP 18; TEMP 36.4; O2SAT 99
[2020-02-22] MEDS: ONDANSETRON 4 MG ODT PREPACK 1 BOTTLE MISC (00:38)
== END 2020-02-22 00:45 | disposition home or self-care (01) ==
PROVIDERS: Emergency Provider Emergency Medicine; PCP Family Medicine
DX: R07.9 Chest pain, unspecified (principal); B37.0 Candidal stomatitis; I50.9 Heart failure, unspecified; R60.9 Edema, unspecified; R79.89 Other specified abnormal findings of blood chemistry
CPT/HCPCS: 36415; 71046; 71275; 80053; 83605; 83880; 84484; 85025; 85379; 93005; 96374; 96375; 99284; 99285; J1170; J1940; J2405; J2765; Q9967

== ENCOUNTER 2020-02-24 08:08 | Inpatient (IN) | payer MEDICARE, SELFPAY ==
[2020-02-24] VITALS (29 sets, daily range): BP systolic 131–193; BP diastolic 63–95; PULSE 97–118; RESP 4–38; TEMP 32–36.8; O2SAT 90–97; BMI 32.1; BMI 30.2
--- NOTE | 2020-02-24 08:15 | ED_ITS ---
HPI - SOB/Dyspnea General Chief Complaint: Shortness of Breath/Dyspnea Stated Complaint: Not feeling well Time Seen by Provider: 02/24/20 08:14 Source: patient, EMS and old records reviewed Mode of arrival: EMS Limitations: no limitations History of Present Illness HPI Narrative: Patient is a 74-year-old female who presents with dry mouth and shortness of breath. Of asthma, CHF on 3L home oxygen. She actually was seen evaluated here 3 days ago for the same. She had full workup including chest CT which was negative was discharged home with candidiasis of the mouth and right- sided chest pain. She states that she continues to have of right shoulder pain which hurts every time she takes a breath. It is a pinpoint that has been there for a number of days. She says this is was for venting her from taking a deep breath. It is right by her right shoulder blade her back She previously received delighted for pain which she said made her nauseous and she does not want that medication again. Her Lasix dosing was recently changed as well, was decreased from 40 mg to 20 mg on February 14 she was given Lasix in the IV. She states that she does have orthopnea and prefers to sit upright. She denies any fever or cough. She did take her inhaler with spacer about 20 minutes prior to arrival and has not helped. She appears acutely dyspneic. MD Complaint: shortness of breath Related Data Home Medications Medication Instructions Recorded Confirmed ASPIRIN (#ASPIRIN) 81 mg PO QDAY #0 05/10/11 02/24/20 Previous Rx's Medication Instructions Recorded Disabled Parking Permit #1 ea 05/30/18 albuterol sulfate 90 mcg/actuation 2 puff INHALATION Q4HP PRN #6 inh 11/10/18 aerosol inhaler budesonide-formoterol HFA 160 2 puff INHALATION BID #30 gm 09/18/19 mcg-4.5 mcg/actuation aerosol inhaler potassium chloride 20 mEq 10 meq PO .COMPLEX #0 tab 10/02/19 tablet,extended release(part/cryst) famotidine 20 mg tablet 20 mg PO BID #60 tab 10/28/19 tiotropium bromide 18 mcg capsule 18 mcg INHALATION QDAY #90 11/11/19 with inhalation device inhalation ipratropium bromide 0.03 % nasal 2 spray NASAL BID #30 ml 01/15/20 spray azithromycin 250 mg tablet 250 mg PO 3XW #36 tab 01/27/20 prednisone 20 mg tablet 30 mg PO DAILY #60 tab 02/09/20 prednisone 5 mg tablet 5 mg PO DAILY #6 tab 02/11/20 furosemide 20 mg tablet 20 mg PO QDAY #90 tab 02/15/20 omeprazole 40 mg capsule,delayed 40 mg PO DAILY #30 cap 02/15/20 release clotrimazole 10 mg MM 5XD #60 tab 02/22/20 Allergies Allergy/AdvReac Type Severity Reaction Status Date / Time No Known Drug Allergies Allergy Verified 02/24/20 08:31 Review of Systems Review of Systems ROS Unobtainable: All systems reviewed & are unremarkable except as noted in HPI and below Constitutional Constitutional: Denies body ache(s) and Denies chills ENT Ears, Nose, Mouth, and Throat: Reports as per HPI, Reports dry mouth and Reports mouth pain Cardiovascular Cardiovascular: Denies chest pain, Denies irregular heart rhythm, Denies lightheadedness, Denies palpitations, Reports dyspnea on exertion and Reports orthopnea Respiratory Respiratory: Denies cough, Reports pain on inspiration and Reports dyspnea on exertion Gastrointestinal Gastrointestinal: Denies abdominal pain, Denies change in bowel habits, Denies diarrhea, Denies nausea and Denies vomiting Musculoskeletal Musculoskeletal: Denies back pain Integumentary/Breasts Skin/Breast: Denies pruritus, Denies erythema, Denies rash and Denies wounds Endocrine Endocrine: Denies palpitations Patient History Medical History Asthma (Chronic ~2000) Boils (Resolved 2013) Cataract (Resolved 2012) COPD (chronic obstructive pulmonary disease) (Chronic ~2000) Dry mouth (Acute) Leukoplakia (Acute) Measles (Resolved 1963) Pelvis fracture (Resolved ~1950) Rubella (Resolved) Surgical History Anesthesia (Resolved) H/O flexible sigmoidoscopy (Resolved 11/03/98) History of cataract removal with insertion of prosthetic lens (Resolved 09/22) History of cataract removal with insertion of prosthetic lens (Resolved 07/01/12) History of dental surgery (Resolved ~1982) Family History Brother Age: 79 Skin cancer Father Colon cancer Mother Lung cancer Breast cancer Sister Age: 78 Skin cancer Social History Smoking Status: Former smoker Smoking Status: Former smoker Substance Use Type: does not use Exam Initial Vital Signs Initial Vital Signs: Vital Signs Temperature 98.0 F 02/24/20 08:24 Pulse Rate 105 H 02/24/20 08:24 Respiratory Rate 30 H 02/24/20 08:24 Blood Pressure 178/95 H 02/24/20 08:24 Pulse Oximetry 94 02/24/20 08:24 GENERAL: Alert female appears in [id number] respiratory distress and in no acute distress. HEENT: Head atraumatic,EOMI, pupils reactive, face symmetric, dry mouth CARDIOVASCULAR: Regular rate and rhythm without murmurs, rubs or gallops. RESPIRATORY: Tachypneic decreased breath sounds bilaterally speaks in 3-5 word sentences no rales or rhonchi no wheezing. Pain by her right shoulder blade pain point reproducible. ABDOMEN: Soft, nontender. Normoactive bowel sounds all 4 quadrants. No guarding or rebound. EXTREMITIES: Normal range of motion, no clubbing or edema. Neurovascularly intact NEUROLOGICAL: Alert and oriented x4.Normal gait and speech. Cranial nerves II through XII grossly intact. SKIN: Warm, dry, no laceration, no petechiae, no rashes or lesions. Course Orders Ordered: ED Orders 02/24/20 08:00 Complete Blood Count AUTO DIFF Stat Comprehensive Metabolic Panel Stat Magnesium Stat NT-proBNP (BNP-Adult 18+) Stat Procalcitonin Stat Troponin & CK Cardiac Panel Stat 02/24/20 08:15 COVID19 -ED/INPAT/OR/L&D Stat 02/24/20 08:16 Consult to Respiratory Therapy Evaluate & Treat 02/24/20 08:17 XR chest 1V Stat 02/24/20 08:33 EKG-12 Lead Stat 02/24/20 08:45 Lactate (Lactic Acid) Stat 02/24/20 09:01 Arterial Blood Gas Stat 02/24/20 10:22 Respiratory Panel (Film Array) Stat Discontinued Medications Albuterol (Ventolin Hfa (Vent/Covid R/O)) 4 puff INH NOW ONE Stop: 02/24/20 08:17 Last Admin: 02/24/20 08:22 Dose: Not Given Documented by: BELKIS Albuterol/Ipratropium (Duoneb) 3 ml INH NOW ONE Stop: 02/24/20 08:17 Last Admin: 02/24/20 08:24 Dose: 3 ml Documented by: BELKIS Ketorolac Tromethamine (Toradol) 15 mg IV NOW ONE Stop: 02/24/20 08:51 Last Admin: 02/24/20 09:11 Dose: 15 mg Documented by: EDITH Methylprednisolone (Solu-Medrol 125 Mg Vial) 125 mg IV NOW ONE Stop: 02/24/20 08:17 Last Admin: 02/24/20 08:35 Dose: 125 mg Documented by: EDITH Vital Signs Vital signs: Vital Signs - 8 hr 02/24/20 08:24 02/24/20 08:30 02/24/20 08:51 Temperature 98.0 F Pulse Rate 105 H 117 H 97 H Respiratory Rate 30 H 34 H 28 H Blood Pressure 178/95 H 177/76 H Pulse Oximetry 94 93 93 02/24/20 09:08 02/24/20 09:17 Temperature Pulse Rate 109 H 108 H Respiratory Rate 30 H 36 H Blood Pressure 191/81 H Pulse Oximetry 92 94 MDM - SOB/Dyspnea Lab Data Attestation: I reviewed the patient's lab results. Result diagrams: 02/24/20 08:00 02/24/20 08:00 Labs: Lab Results 02/24/20 02/24/20 02/24/20 Range/Units 08:00 08:00 08:00 WBC 11.1 H (4.5-11.0) X10^3/uL RBC 4.20 (4.0-5.2) X10^6/uL Hgb 12.7 (12.0-16.0) g/dL Hct 39.6 (36-46) % MCV 94.3 (80-100) fL MCH 30.2 (26-34) PG MCHC 32.0 (30-36) % RDW 13.4 (11.6-14.8) % Plt Count 251 (150-400) X10^3/uL Neut % (Auto) 75.7 H (50-75) % Lymph % (Auto) 15.0 L (25-40) % [place] % (Auto) 8.1 (3-14) % Eos % (Auto) 1.0 L (2-4) % Baso % (Auto) 0.2 (0-2) % Neut # (Auto) 8400 H (3985-3684) /uL Lymph # (Auto) 1700 (9709-6204) /uL [place] # (Auto) 900 (0-900) /uL Eos # (Auto) 100 (0-450) /uL Baso # (Auto) 0 (0-100) /uL ABG pH (7.35-7.45) ABG pCO2 (35-45) mmHg ABG pO2 (80-100) mmHg ABG HCO3 (22-26) mmol/L ABG Total CO2 (21-31) mmol/L ABG O2 Saturation (95-100) % ABG Base Excess (-2-2) mmol/L FiO2 Sodium (137-145) mmol/L Potassium (3.4-5.1) mmol/L Chloride (98-107) mmol/L Carbon Dioxide (22-32) mmol/L BUN (7-17) mg/dL Creatinine (0.52-1.04) mg/dL Estimated GFR (>60) mL/min BUN/Creatinine Ratio (6-22) Glucose (80-110) mg/dL Lactate (0.7-2.1) mmol/L Calcium (8.4-10.2) mg/dL Magnesium 1.9 (1.6-2.3) mg/dL Total Bilirubin (0.2-1.3) mg/dL AST (14-36) IU/L ALT (<35) IU/L Alkaline Phosphatase (38-126) U/L Total Creatine Kinase 58 (30-135) U/L CK-MB (CK-2) TNP CK-MB (CK-2) Rel Index TNP Troponin I < 0.012 (0.01-0.034) ng/mL NT-Pro-B Natriuret Pep 259 H (<125) pg/mL Total Protein (6.3-8.2) g/dL Albumin (3.5-5.0) g/dL Globulin (1.7-4.1) g/dL Albumin/Globulin Ratio (1.0-2.8) Procalcitonin < 0.05 (<0.5) ng/mL COVID-19 PCR (Negative) 02/24/20 02/24/20 02/24/20 Range/Units 08:00 08:15 08:45 WBC (4.5-11.0) X10^3/uL RBC (4.0-5.2) X10^6/uL Hgb (12.0-16.0) g/dL Hct (36-46) % MCV (80-100) fL MCH (26-34) PG MCHC (30-36) % RDW (11.6-14.8) % Plt Count (150-400) X10^3/uL Neut % (Auto) (50-75) % Lymph % (Auto) (25-40) % [place] % (Auto) (3-14) % Eos % (Auto) (2-4) % Baso % (Auto) (0-2) % Neut # (Auto) (4669-8699) /uL Lymph # (Auto) (2930-0807) /uL [place] # (Auto) (0-900) /uL Eos # (Auto) (0-450) /uL Baso # (Auto) (0-100) /uL ABG pH (7.35-7.45) ABG pCO2 (35-45) mmHg ABG pO2 (80-100) mmHg ABG HCO3 (22-26) mmol/L ABG Total CO2 (21-31) mmol/L ABG O2 Saturation (95-100) % ABG Base Excess (-2-2) mmol/L FiO2 Sodium 137 (137-145) mmol/L Potassium 3.6 (3.4-5.1) mmol/L Chloride 91 L (98-107) mmol/L Carbon Dioxide 42 H* (22-32) mmol/L BUN 14 (7-17) mg/dL Creatinine 0.57 (0.52-1.04) mg/dL Estimated GFR > 60.0 (>60) mL/min BUN/Creatinine Ratio 24.6 H (6-22) Glucose 106 (80-110) mg/dL Lactate 0.8 (0.7-2.1) mmol/L Calcium 9.3 (8.4-10.2) mg/dL Magnesium (1.6-2.3) mg/dL Total Bilirubin 0.6 (0.2-1.3) mg/dL AST 27 (14-36) IU/L ALT 21 (<35) IU/L Alkaline Phosphatase 81 (38-126) U/L Total Creatine Kinase (30-135) U/L CK-MB (CK-2) CK-MB (CK-2) Rel Index Troponin I (0.01-0.034) ng/mL NT-Pro-B Natriuret Pep (<125) pg/mL Total Protein 6.8 (6.3-8.2) g/dL Albumin 3.9 (3.5-5.0) g/dL Globulin 2.9 (1.7-4.1) g/dL Albumin/Globulin Ratio 1.3 (1.0-2.8) Procalcitonin (<0.5) ng/mL COVID-19 PCR Negative (Negative) 02/24/20 Range/Units 09:01 WBC (4.5-11.0) X10^3/uL RBC (4.0-5.2) X10^6/uL Hgb (12.0-16.0) g/dL Hct (36-46) % MCV (80-100) fL MCH (26-34) PG MCHC (30-36) % RDW (11.6-14.8) % Plt Count (150-400) X10^3/uL Neut % (Auto) (50-75) % Lymph % (Auto) (25-40) % [place] % (Auto) (3-14) % Eos % (Auto) (2-4) % Baso % (Auto) (0-2) % Neut # (Auto) (3855-4773) /uL Lymph # (Auto) (9558-5803) /uL [place] # (Auto) (0-900) /uL Eos # (Auto) (0-450) /uL Baso # (Auto) (0-100) /uL ABG pH 7.36 (7.35-7.45) ABG pCO2 78.4 H* (35-45) mmHg ABG pO2 69 L (80-100) mmHg ABG HCO3 44 H (22-26) mmol/L ABG Total CO2 46 H (21-31) mmol/L ABG O2 Saturation 91 L (95-100) % ABG Base Excess 18.0 H (-2-2) mmol/L FiO2 28 Sodium (137-145) mmol/L Potassium (3.4-5.1) mmol/L Chloride (98-107) mmol/L Carbon Dioxide (22-32) mmol/L BUN (7-17) mg/dL Creatinine (0.52-1.04) mg/dL Estimated GFR (>60) mL/min BUN/Creatinine Ratio (6-22) Glucose (80-110) mg/dL Lactate (0.7-2.1) mmol/L Calcium (8.4-10.2) mg/dL Magnesium (1.6-2.3) mg/dL Total Bilirubin (0.2-1.3) mg/dL AST (14-36) IU/L ALT (<35) IU/L Alkaline Phosphatase (38-126) U/L Total Creatine Kinase (30-135) U/L CK-MB (CK-2) CK-MB (CK-2) Rel Index Troponin I (0.01-0.034) ng/mL NT-Pro-B Natriuret Pep (<125) pg/mL Total Protein (6.3-8.2) g/dL Albumin (3.5-5.0) g/dL Globulin (1.7-4.1) g/dL Albumin/Globulin Ratio (1.0-2.8) Procalcitonin (<0.5) ng/mL COVID-19 PCR (Negative) Imaging Data Chest x-ray: Radiologist's Impression: PROCEDURE: XR CHEST 1V INDICATIONS: shortness of breath TECHNIQUE: One view of the chest was acquired. COMPARISON: [facility], CR, XR CHEST 2V, 02/21/2020, 18:24. [facility], CT, CT ANGIO CHEST PE PROTOCOL, 02/21/2020, 21:13. FINDINGS: Surgical changes and devices: None. Lungs and pleura: Question mild interstitial pulmonary edema. Emphysematous change. No pleural effusions or pneumothorax. Mediastinum: Mediastinal contours appear normal. Heart size is normal. Bones and chest wall: No suspicious bony lesions. Overlying soft tissues appear unremarkable. IMPRESSION: Emphysematous change. Question mild interstitial pulmonary edema. Dictated by: Farshad Faust M.D. on 02/24/2020 at 9:22 ECG Data Attestation: I personally reviewed and interpreted this ECG as follows: Prior ECG tracings: available for review Interpretation: Sinus tachycardia rate 98 p.r. interval 140 QRS [address] changes similar to previous she MDM Narrative Medical decision making narrative: Patient does appear to be in respiratory distress she had 0 improvement after nebulizer. ABG does show hypercapnia initial trial of high-flow O2 patient seems remarkably better after placing high-flow nasal cannula. At this time I do not believe that she needs BiPAP. She is given IV steroids and IV Toradol to help with her back pain. Back pain is reproducible it has been there for number of days it is pinpoint it seems to be musculoskeletal rather than cardiac or other. She had a chest CT a done 3 days ago I do not think it is reasonable to repeat it at this time. Blood work is overall reassuring. I do think some of this is asthma exacerbation, she has no infectious symptoms and has a negative procalcitonin. This does not appear to be CHF she does not appear wet. At this time she has failed outpatient treatment and will require admission Discussed case with Dr. jain, who agrees to inpatient. Discharge Plan Departure Patient Disposition: Admitted As Inpatient Clinical Impression: Asthma exacerbation Qualifiers: Asthma severity: mild Asthma persistence: persistent Qualified Code(s): J45.31 - Mild persistent asthma with (acute) exacerbation Referrals: Lyndsay Ruelas DO [Primary Care Provider] - Admit Date/Time: 02/24/20 10:18 Admit Provider: Arianna Jain
--- NOTE | 2020-02-24 08:17 | DI.RAD.S_ITS ---
PROCEDURE: XR CHEST 1V INDICATIONS: shortness of breath TECHNIQUE: One view of the chest was acquired. COMPARISON: [facility], CR, XR CHEST 2V, 02/21/2020, 18:24. [facility], CT, CT ANGIO CHEST PE PROTOCOL, 02/21/2020, 21:13. FINDINGS: Surgical changes and devices: None. Lungs and pleura: Question mild interstitial pulmonary edema. Emphysematous change. No pleural effusions or pneumothorax. Mediastinum: Mediastinal contours appear normal. Heart size is normal. Bones and chest wall: No suspicious bony lesions. Overlying soft tissues appear unremarkable. IMPRESSION: Emphysematous change. Question mild interstitial pulmonary edema. Dictated by: Farshad Faust M.D. on 02/24/2020 at 9:22 Approved by: Farshad Faust M.D. on 02/24/2020 at 9:24
[2020-02-24] MEDS: ALBUTEROL/IPRATROPIUM 3 ML AMPUL INH ×4 (08:24→21:34)
[2020-02-24 08:25] LABS: Add Manual Diff / Slide Review NO; Basophils Absolute Auto 0 /uL (0-100); Basophils Percent Auto 0.2 % (0-2); Eosinophils Absolute Auto 100 /uL (0-450); Hematocrit 39.6 % (36-46); Hemoglobin 12.7 g/dL (12.0-16.0); Lymphocytes Absolute Auto 1700 /uL (1100-4500); Mean Corpuscular Hemoglobin 30.2 PG (26-34); Mean Corpuscular Volume 94.3 fL (80-100); Monocytes Absolute Auto 900 /uL (0-900); Monocytes Percent Auto 8.1 % (3-14); Neutrophils Absolute Auto 8400 /uL (1500-7000); Neutrophils Percent Auto 75.7 % (50-75); Platelet Count 251 X10^3/uL (150-400); Red Cell Distribution Width 13.4 % (11.6-14.8); White Blood Cell Count 11.1 X10^3/uL (4.5-11.0)
[2020-02-24 08:32] LABS: Creatine Kinase 58 U/L (30-135); Magnesium 1.9 mg/dL (1.6-2.3)
[2020-02-24 08:33] LABS: Alanine Aminotransferase 21 IU/L (<35); Albumin 3.9 g/dL (3.5-5.0); Albumin Globulin Ratio 1.3 (1.0-2.8); Alkaline Phosphatase 81 U/L (38-126); Aspartate Aminotransferase 27 IU/L (14-36); BUN Creatinine Ratio 24.6 (6-22); Bilirubin Total 0.6 mg/dL (0.2-1.3); Blood Urea Nitrogen 14 mg/dL (7-17); Calcium 9.3 mg/dL (8.4-10.2); Chloride 91 mmol/L (98-107); Estimated Glomerular Filt Rate > 60.0 mL/min (>60); Globulin 2.9 g/dL (1.7-4.1); Glucose 106 mg/dL (80-110); HEMOLYSIS < 15 (0-50); Potassium 3.6 mmol/L (3.4-5.1); Sodium 137 mmol/L (137-145); Total Protein 6.8 g/dL (6.3-8.2)
[2020-02-24] MEDS: methylPREDNISolone 125 MG/2 ML VIAL IV (08:35)
[2020-02-24 08:41] LABS: COVID19 -Nasal RAPID Negative (Negative)
[2020-02-24 08:45] LABS: NT-proBNP (BNP-Adult 18+) 259 pg/mL (<125); Troponin I < 0.012 ng/mL (0.01-0.034)
[2020-02-24 08:48] LABS: Procalcitonin < 0.05 ng/mL (<0.5)
[2020-02-24 08:50] LABS: Carbon Dioxide 42 mmol/L (22-32)
[2020-02-24 09:06] LABS: Lactate (Lactic Acid) 0.8 mmol/L (0.7-2.1)
[2020-02-24] MEDS: KETOROLAC 60 MG/2 ML VIAL 15 MG IV (09:11)
--- NOTE | 2020-02-24 09:15 | PC.NURSE ---
high flow oxygen. pt is currently on 4L, 40 percent Fio2 so far. RT at bedside.
[2020-02-24 09:31] LABS: HCO3 ABG 44 mmol/L (22-26); PCO2 ABG 78.4 mmHg (35-45); PO2 ABG 69 mmHg (80-100); pH ABG 7.36 (7.35-7.45)
[2020-02-24 09:32] LABS: Fractionated Inspired Oxygen 28; Oxygen Saturation ABG 91 % (95-100); TCO2 ABG 46 mmol/L (21-31)
[2020-02-24 11:38] LABS: Adenovirus Not Detected (Not Detect); Bordetella pertussis Not Detected (Not Detect); Chlamydophila pneumoniae Not Detected (Not Detect); Coronavirus 229E Not Detected (Not Detect); Coronavirus HKU1 Not Detected (Not Detect); Coronavirus NL 63 Not Detected (Not Detect); Coronavirus OC43 Not Detected (Not Detect); Human Metapneumovirus Not Detected (Not Detect); Human Rhinovirus/Enterovirus Not Detected (Not Detect); Influenza A Not Detected (Not Detect); Influenza B Not Detected (Not Detect); Mycoplasma pneumoniae Not Detected (Not Detect); Parainfluenza Virus 1 Not Detected (Not Detect); Parainfluenza Virus 2 Not Detected (Not Detect); Parainfluenza Virus 3 Not Detected (Not Detect); Parainfluenza Virus 4 Not Detected (Not Detect); Respiratory Syncytial Virus Not Detected (Not Detect)
[2020-02-24] MEDS: ALBUTEROL 2.5 MG/3 ML NEB (ADULT) INH (11:57)
[2020-02-24 12:03] LABS: HCO3 ABG 43 mmol/L (22-26); PCO2 ABG 67.1 mmHg (35-45); PO2 ABG 72 mmHg (80-100); TCO2 ABG 45 mmol/L (21-31); pH ABG 7.42 (7.35-7.45)
[2020-02-24 12:04] LABS: Fractionated Inspired Oxygen 35; Oxygen Saturation ABG 94 % (95-100)
--- NOTE | 2020-02-24 14:06 | P.HP_ITS ---
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 The patient reports she has had been having right shoulder blade pain for 1 week. She previously was seen in outpatient clinic and started on a steroid taper and instructed to take her prophylactic azithromycin 250 mg daily for 1 week which she usually takes 3 times a week for COPD exacerbation prophylaxis. She reports that for the last several days her right shoulder blade pain has been persistent and now is accompanied with shortness of breath. She was unable to take her Symbicort and Spiriva today due to shortness of breath. She has had mild productive cough and lung congestion. She she also endorses rhinitis, sore throat, and tonsillar exudate. She reports she had to increase her oxygen at home to 3.5 L to breathe more easily. She is also noted increasing daytime sleepiness. The patient is is quite obviously short of breath with tachypnea, mild conversational dyspnea and pursed lip breathing. She does endorse mild subjective fever and chills the last several days. She has no other complaints and denies headache, chest pain or pressure, abdominal pain, nausea, vomiting, dysuria, diarrhea or constipation. She denies sick contacts. She was tested for COVID-19 and respiratory viruses in the ED which were all negative. She reports she has received her influenza and p neumonia vaccinations. She has continued a short steroid taper and azithromycin daily. ED course: Vital signs: Temperature 98? F, blood pressure 139/63, heart rate 106, respiratory rate 29, pulse ox 92% FiO2 0.28. Chest x-ray demonstrated emphysema with right lower lobe haziness and possible early pneumonia. WBC 11.1 with PMNs 75.7. Lactate normal at 0.8. ABG demonstrated compensated resp iratory acidosis with hypercapnic respiratory failure with: pH 7.36, pO2 69, CO2 78.4 and bicarb 44 with SpO2 91% on FiO2 0.28. She received methylprednisolone 125 mg IV x1. She was placed on heated high-flow oxygen with FiO2 0.35 and 40 L flow. She was admitted as an inpatient to intensive care unit to treat hypercapnic respiratory failure with BiPAP, COPD exacerbation and possible bacterial pneumonia. Patient History Medical History Asthma (Chronic ~2000) Boils (Resolved 2013) Cataract (Resolved 2012) COPD (chronic obstructive pulmonary disease) (Chronic ~2000) Dry mouth (Acute) Leukoplakia (Acute) Measles (Resolved 1963) Pelvis fracture (Resolved ~1950) Rubella (Resolved) Surgical History Anesthesia (Resolved) H/O flexible sigmoidoscopy (Resolved 11/03/98) History of cataract removal with insertion of prosthetic lens (Resolved 06/17/12) History of cataract removal with insertion of prosthetic lens (Resolved 07/01/12) History of dental surgery (Resolved ~1982) Family & Social History Family History (Updated 02/24/20 @ 14:11 by Arianna Dent DO) Brother Age: 79 Skin cancer Colon cancer Father Colon cancer Mother Lung cancer Breast cancer Sister Age: 78 Skin cancer Social History: household members spouse Prior Living Arrangements House Safety & Behavioral: Feels Safe in Current Yes Environment Been Physically Hurt or No Threatened By a Person Suicidal Ideation Description None Tobacco & Substance use: Smoking Status Former smoker, 1ppd x 50 years, quit 5-6 years ago alcohol intake current alcohol intake frequency a glass of wine a few times a month Substance Use Type does not use The patient has been for 54 years. She has 1 daughter who is healthy. 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 Meds Home Medications and Allergies Home Medications Medication Instructions Recorded Confirmed Type aspirin 81 mg PO DAILY #0 05/10/11 02/24/20 History Disabled Parking Permit #1 ea 05/30/18 02/24/20 Rx albuterol sulfate 90 mcg/actuation 2 puff INHALATION Q4HP PRN #6 inh 11/10/18 02/24/20 Rx aerosol inhaler budesonide-formoterol HFA 160 2 puff INHALATION BID #30 gm 09/18/19 02/24/20 Rx mcg-4.5 mcg/actuation aerosol inhaler tiotropium bromide 18 mcg capsule 18 mcg INHALATION QDAY #90 11/11/19 02/24/20 Rx with inhalation device inhalation ipratropium bromide 0.03 % nasal 2 spray NASAL BID #30 ml 01/15/20 02/24/20 Rx spray azithromycin 250 mg tablet 250 mg PO 3XW #36 tab 01/27/20 02/24/20 Rx omeprazole 40 mg capsule,delayed 40 mg PO DAILY #30 cap 02/15/20 02/24/20 Rx release clotrimazole 10 mg MM 5XD #60 tab 02/22/20 02/24/20 Rx famotidine 40 mg PO DAILY 02/24/20 02/24/20 History potassium chloride [Klor-Con M20] 10 meq PO QAM 02/24/20 02/24/20 History prednisone 15 mg PO DAILY 02/24/20 02/24/20 History Allergies Allergy/AdvReac Type Severity Reaction Status Date / Time No Known Drug Allergies Allergy Verified 02/24/20 08:31 Review of Systems Review of Systems Narrative: A 10 system comprehensive review of systems was conducted with the patient and found to be negative except as above in the History of Present Illness. Exam Vital Signs (past 8 hours): - 02/24/20 08:24 02/24/20 08:30 02/24/20 08:51 Temperature 98.0 F Pulse Rate 105 H 117 H 97 H Respiratory Rate 30 H 34 H 28 H Blood Pressure 178/95 H 177/76 H Pulse Oximetry 94 93 93 02/24/20 09:08 02/24/20 09:17 02/24/20 10:44 Temperature Pulse Rate 109 H 108 H 105 H Respiratory Rate 30 H 36 H Blood Pressure 191/81 H Pulse Oximetry 92 94 97 02/24/20 10:49 02/24/20 10:50 02/24/20 10:55 Temperature 98 F Pulse Rate 106 H 106 H 110 H Respiratory Rate 29 H 28 H 29 H Blood Pressure 139/63 193/87 H Pulse Oximetry 92 93 91 02/24/20 11:04 02/24/20 12:02 02/24/20 12:06 Temperature Pulse Rate 115 H Respiratory Rate 28 H Blood Pressure Pulse Oximetry 92 94 92 02/24/20 12:11 Temperature Pulse Rate 118 H Respiratory Rate 28 H Blood Pressure 170/93 H Pulse Oximetry 90 L Fraction of Inspired Oxygen 0.30 Oxygen Delivery Method Heated High Flow Oxygen Flow Rate 40 Narrative Exam Narrative: General: Elderly female sitting in bed, well-developed, well-nourished, with conversational dyspnea, tachypnea and mild respiratory distress, otherwise appropriately interactive. HEENT: Normocephalic, atraumatic. External ears without defect. Pupils equal, round, and reactive to light. Anicteric sclerae, moist conjunctivae, and no lid lag. Oropharynx free of erythema and cobble stoning with moist mucosa. Neck: Supple with full range of motion. No jugular venous distension. No lymphadenopathy or thyromegaly. Cardiovascular: Regular rhythm, tachycardic, without murmurs, rubs, or gallops appreciated. Pulmonary: Diminished throughout witho poor aeration but clear to auscultation bilaterally. No wheezes, rhonchi or crackles. Mild respiratory distress with tachypnea and mild use of accessory muscles. Pursed lip breathing. Abdomen: Soft, bowel sounds present, nontender, nondistended. No hepatosplenomegaly or masses appreciated. Extremities: No clubbing or cyanosis. Mild bilateral pitting edema to pretibial area with venous stasis changes. Skin: Normal temperature, turgor, and texture; no rash, ulcers, or subcutaneous nodules appreciated. Neurological: Cranial nerves grossly intact. Psychiatric: Normal mood and affect. Alert and oriented to person, place, and time. Objective Labs Result Diagrams: 02/24/20 08:00 02/24/20 08:00 Labs: Laboratory Results - last 24 hr 02/24/20 02/24/20 02/24/20 08:00 08:00 08:00 WBC 11.1 H RBC 4.20 Hgb 12.7 Hct 39.6 MCV 94.3 MCH 30.2 MCHC 32.0 RDW 13.4 Plt Count 251 Neut % (Auto) 75.7 H Lymph % (Auto) 15.0 L [place] % (Auto) 8.1 Eos % (Auto) 1.0 L Baso % (Auto) 0.2 Neut # (Auto) 8400 H Lymph # (Auto) 1700 [place] # (Auto) 900 Eos # (Auto) 100 Baso # (Auto) 0 ABG pH ABG pCO2 ABG pO2 ABG HCO3 ABG Total CO2 ABG O2 Saturation ABG Base Excess FiO2 Sodium Potassium Chloride Carbon Dioxide BUN Creatinine Estimated GFR BUN/Creatinine Ratio Glucose Lactate Calcium Magnesium 1.9 Total Bilirubin AST ALT Alkaline Phosphatase Total Creatine Kinase 58 CK-MB (CK-2) TNP CK-MB (CK-2) Rel Index TNP Troponin I < 0.012 NT-Pro-B Natriuret Pep 259 H Total Protein Albumin Globulin Albumin/Globulin Ratio Procalcitonin < 0.05 Nasal Screen MRSA (PCR) Chlamy pneumoniae PCR Adenovirus (PCR) B.parapertussis DNA PCR Coronavirus OC43 (PCR) Coronavirus HKU1 (PCR) Coronavirus 229E (PCR) COVID-19 PCR Coronavirus NL63 (PCR) Human Metapneumovir PCR Influenza Type A (PCR) Influenza Type B (PCR) M. pneumoniae (PCR) Parainfluenza 1 (PCR) Parainfluenza 2 (PCR) Parainfluenza 3 (PCR) Parainfluenza 4 (PCR) RSV (PCR) Entero/Rhino (PCR) 02/24/20 02/24/20 02/24/20 08:00 08:15 08:45 WBC RBC Hgb Hct MCV MCH MCHC RDW Plt Count Neut % (Auto) Lymph % (Auto) [place] % (Auto) Eos % (Auto) Baso % (Auto) Neut # (Auto) Lymph # (Auto) [place] # (Auto) Eos # (Auto) Baso # (Auto) ABG pH ABG pCO2 ABG pO2 ABG HCO3 ABG Total CO2 ABG O2 Saturation ABG Base Excess FiO2 Sodium 137 Potassium 3.6 Chloride 91 L Carbon Dioxide 42 H* BUN 14 Creatinine 0.57 Estimated GFR > 60.0 BUN/Creatinine Ratio 24.6 H Glucose 106 Lactate 0.8 Calcium 9.3 Magnesium Total Bilirubin 0.6 AST 27 ALT 21 Alkaline Phosphatase 81 Total Creatine Kinase CK-MB (CK-2) CK-MB (CK-2) Rel Index Troponin I NT-Pro-B Natriuret Pep Total Protein 6.8 Albumin 3.9 Globulin 2.9 Albumin/Globulin Ratio 1.3 Procalcitonin Nasal Screen MRSA (PCR) Chlamy pneumoniae PCR Adenovirus (PCR) B.parapertussis DNA PCR Coronavirus OC43 (PCR) Coronavirus HKU1 (PCR) Coronavirus 229E (PCR) COVID-19 PCR Negative Coronavirus NL63 (PCR) Human Metapneumovir PCR Influenza Type A (PCR) Influenza Type B (PCR) M. pneumoniae (PCR) Parainfluenza 1 (PCR) Parainfluenza 2 (PCR) Parainfluenza 3 (PCR) Parainfluenza 4 (PCR) RSV (PCR) Entero/Rhino (PCR) 02/24/20 02/24/20 02/24/20 09:01 10:22 11:54 WBC RBC Hgb Hct MCV MCH MCHC RDW Plt Count Neut % (Auto) Lymph % (Auto) [place] % (Auto) Eos % (Auto) Baso % (Auto) Neut # (Auto) Lymph # (Auto) [place] # (Auto) Eos # (Auto) Baso # (Auto) ABG pH 7.36 7.42 ABG pCO2 78.4 H* 67.1 H* ABG pO2 69 L 72 L ABG HCO3 44 H 43 H ABG Total CO2 46 H 45 H ABG O2 Saturation 91 L 94 L ABG Base Excess 18.0 H 19.0 H FiO2 28 35 Sodium Potassium Chloride Carbon Dioxide BUN Creatinine Estimated GFR BUN/Creatinine Ratio Glucose Lactate Calcium Magnesium Total Bilirubin AST ALT Alkaline Phosphatase Total Creatine Kinase CK-MB (CK-2) CK-MB (CK-2) Rel Index Troponin I NT-Pro-B Natriuret Pep Total Protein Albumin Globulin Albumin/Globulin Ratio Procalcitonin Nasal Screen MRSA (PCR) Chlamy pneumoniae PCR Not detected Adenovirus (PCR) Not detected B.parapertussis DNA PCR Not detected Coronavirus OC43 (PCR) Not detected Coronavirus HKU1 (PCR) Not detected Coronavirus 229E (PCR) Not detected COVID-19 PCR Coronavirus NL63 (PCR) Not detected Human Metapneumovir PCR Not detected Influenza Type A (PCR) Not detected Influenza Type B (PCR) Not detected M. pneumoniae (PCR) Not detected Parainfluenza 1 (PCR) Not detected Parainfluenza 2 (PCR) Not detected Parainfluenza 3 (PCR) Not detected Parainfluenza 4 (PCR) Not detected RSV (PCR) Not detected Entero/Rhino (PCR) Not detected 02/24/20 12:15 WBC RBC Hgb Hct MCV MCH MCHC RDW Plt Count Neut % (Auto) Lymph % (Auto) [place] % (Auto) Eos % (Auto) Baso % (Auto) Neut # (Auto) Lymph # (Auto) [place] # (Auto) Eos # (Auto) Baso # (Auto) ABG pH ABG pCO2 ABG pO2 ABG HCO3 ABG Total CO2 ABG O2 Saturation ABG Base Excess FiO2 Sodium Potassium Chloride Carbon Dioxide BUN Creatinine Estimated GFR BUN/Creatinine Ratio Glucose Lactate Calcium Magnesium Total Bilirubin AST ALT Alkaline Phosphatase Total Creatine Kinase CK-MB (CK-2) CK-MB (CK-2) Rel Index Troponin I NT-Pro-B Natriuret Pep Total Protein Albumin Globulin Albumin/Globulin Ratio Procalcitonin Nasal Screen MRSA (PCR) Negative for mrsa Chlamy pneumoniae PCR Adenovirus (PCR) B.parapertussis DNA PCR Coronavirus OC43 (PCR) Coronavirus HKU1 (PCR) Coronavirus 229E (PCR) COVID-19 PCR Coronavirus NL63 (PCR) Human Metapneumovir PCR Influenza Type A (PCR) Influenza Type B (PCR) M. 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 1. Acute hypercapnic and chronic hypoxemic respiratory failure, present on admission. Active. -ABG demonstrated compensated respiratory acidosis with hypoxemic and hypercapnic respiratory failure: pH 7.36, pO2 69, CO2 78.4 and bicarb 44 with SpO2 91% on FiO2 0.28. -Consulted respiratory therapy for evaluation treatment. Plan to start BiPAP for hypercapnia. Continue supplemental oxygen to maintain oxygen saturations 88-92%. Do not want to over oxygenate patient as this will precipitate hypercarbia. Continue DuoNebs every 4 hours while awake, albuterol nebs every 2 hours as needed for shortness of breath or wheezing, and Pulmicort nebs twice daily. -Continue to monitor ABGs as necessary to adjust NIPPV. -CTA chest on 02/21/2020 demonstrated centrilobular emphysema with no acute cardiopulmonary process. No PE. 2. Acute COPD exacerbation, present on admission. Active. -Patient failed outpatient treatment with prednisone taper and azithromycin 250 mg daily as an outpatient (which she usually takes 3 times a week for prophylaxis of COPD exacerbation). -Consulted respiratory therapy for evaluation treatment. Plan to start BiPAP for hypercapnia. Continue supplemental oxygen to maintain oxygen saturations 88-92%. Do not want to over oxygenate patient as this will precipitate hypercarbia. Continue DuoNebs every 4 hours while awake, albuterol nebs every 2 hours as needed for shortness of breath or wheezing, and Pulmicort nebs twice daily. -Received methylprednisolone 20 mg IV x1 in ED. Continue methylprednisolone 60 mg IV every 8 hours and will slowly titrate down as breathing improves. -Continue Mucinex 1200 mg twice daily. 3. Probable right lower lobe bacterial pneumonia, present on admission. Active. -Patient presented with shortness of breath, mildly productive cough, chest c ongestion, rhinitis, mild sore throat, recent tonsillar exudates and right shoulder blade pain. The patient has been on prednisone taper and azithromycin 250 mg daily as an outpatient. Of note, the patient usually takes azithromycin 250 mg 3 times a week for prophylaxis of COPD exacerbation. -Chest x-ray demonstrated emphysema with probable early right-sided pneumonia versus mild pulmonary edema. -CTA chest on 02/21/2020 demonstrated centrilobular emphysema with no acute cardiopulmonary process. No PE. -Initial WBC mildly elevated at 11.1 and procalcitonin negative at < 0.05. Continue to monitor WBC and procalcitonin daily. -Ordered complete pneumonia workup including: Respiratory viral PCR and COVID- 19 negative. Strep pneumoniae and Legionella urine antigens, pending. Sputum culture ordered and pending. Blood culture x2 pending. -Continue azithromycin 250 mg daily and started ceftriaxone 2 g IV daily. 4. GERD, chronic, present on admission. Stable. -Continue home famotidine 40 mg daily and equivalent of home PPI with Protonix 40 mg daily. 5. Venous insufficiency with lower extremity edema, chronic, present on admission. Stable. -ProBNP 259. Chest x-ray demonstrated emphysema with probable early right-sided pneumonia versus mild pulmonary edema. Patient does not appear overtly fluid overloaded but does have mild bilateral pitting edema to pretibial area likely due to venous insufficiency. -Previous echocardiogram 12/04/2005 demonstrated LV normal size and function with EF 60-65%, normal RV size and function, mild biatrial enlargement, and no obvious valvular disease. -Held home furosemide 20 mg daily and potassium chloride 10 mEq daily due to possible infection. -May consider obtaining echocardiogram if patient does not improve with treatment of COPD exacerbation and probable bacterial pneumonia as above. Code status: Limited Code (no CPR, cardioversion or intubation and allows for BiPAP or vasopressors if needed), surrogate decision maker is designated as patient's spouse Jonny Metzger VTE prophylaxis: Enoxaparin, SCDs Critical care time spent: 90 minutes Patient is admitted under inpatient status with expected length of stay greater than 2 midnights due to severity of presenting symptoms, risk of adverse event, and complexity of treatment plan. Quality VTE Deep Vein Thrombosis/Pulmonary Embolism Present on Admission: No
--- NOTE | 2020-02-24 14:30 | PC.NURSE ---
Admit Note Pt arrived to room 230 by stretcher from ER at 1055. Pt ambulated self from stretcher to bed, was steady on feet but became severely tachypneic with RR in the 30s, taking 30-45 min to recover to the 22-24 bpm range, SpO2 88-92%. On heated HFNC 40L FiO2 35%, SpO2 93% at rest. Denies pain. ST in the 110s. Clothing placed in room closet, glasses at bedside, no other belongings with patient. At about 1330 pt reported increasing shortness of breath, RR in the upper 30s and labored, HR in the 120s. Lung sounds decreased, SpO2 85-87%. RT called to bedside-increased heated high flow to 50L. Dr. Dent also notified and to bedside and order received for bipap. Bipap placed by RT at 1415 (15/8, 30% FiO2). ABG to be repeated at 1515. Awaiting sputum and urine to send to culture, pt is aware. Blood cultures to be drawn. Oriented to room and to call light/bed/tv controls on arrival. Call light within reach.
[2020-02-24] MEDS: CEFTRIAXONE 2 GM/50 ML FROZ.PIGGY IV (14:58)
[2020-02-24 15:42] LABS: Appearance Urine UA CLEAR; Bilirubin Urine UA NEGATIVE (NEGATIVE); Color Urine UA YELLOW; Glucose Urine UA NEGATIVE (Negative); Ketones Urine UA NEGATIVE (NEGATIVE); Leukocyte Esterase Urine UA NEGATIVE (NEGATIVE); Nitrite Urine UA NEGATIVE (Negative); Occult Blood Urine UA TRACE-LYSED (Negative); Protein Urine UA TRACE (Negative); Specific Gravity Urine UA 1.025 (1.000-1.035); Urobilinogen Urine UA 0.2 E.U./dL (0.2)
[2020-02-24 15:49] LABS: HCO3 ABG 42 mmol/L (22-26); PCO2 ABG 61.9 mmHg (35-45); PO2 ABG 72 mmHg (80-100); TCO2 ABG 43 mmol/L (21-31); pH ABG 7.43 (7.35-7.45)
[2020-02-24 15:50] LABS: Fractionated Inspired Oxygen 30; Oxygen Saturation ABG 94 % (95-100)
[2020-02-24 16:27] LABS: Amorphous Sediment Urine 2+; Bacteria Urine Few (2-10); Culture Indicated Urine Cult Not Indicated; Hyaline Casts Urine 1-5/LPF; RBC Urine 0-1/HPF (0-5/HPF); Renal Epithelial Cells Urine 0-1/HPF (0-1/HPF); Squamous Epithelial Cell Urine 1-5 /HPF (0-5/HPF); Transitional Epi Cells Urine 1-5/HPF (0-5/HPF); WBC Urine 1-5/HPF (0-5/HPF)
[2020-02-24] MEDS: AZITHROMYCIN 250 MG TABLET PO (17:14)
[2020-02-24] MEDS: methylPREDNISolone 125 MG/2 ML VIAL 60 MG IV (17:14)
[2020-02-24] MEDS: guaiFENesin ER 600 MG TAB 1200 MG PO (21:34)
[2020-02-24] MEDS: BUDESONIDE 0.5 MG/2 ML NEB INH (21:34)
[2020-02-25] VITALS (25 sets, daily range): BP systolic 124–146; BP diastolic 59–78; PULSE 85–112; RESP 16–40; TEMP 30–37.1; O2SAT 90–96
[2020-02-25] MEDS: ACETAMINOPHEN 325 MG TABLET 650 MG PO (00:25)
[2020-02-25] MEDS: methylPREDNISolone 125 MG/2 ML VIAL 60 MG IV ×3 (00:25→18:32)
[2020-02-25] MEDS: ALBUTEROL 2.5 MG/3 ML NEB (ADULT) INH ×2 (00:26→07:59)
[2020-02-25 05:05] LABS: Add Manual Diff / Slide Review NO; Basophils Absolute Auto 0 /uL (0-100); Basophils Percent Auto 0.1 % (0-2); Eosinophils Absolute Auto 0 /uL (0-450); Hematocrit 37.9 % (36-46); Hemoglobin 12.1 g/dL (12.0-16.0); Lymphocytes Absolute Auto 400 /uL (1100-4500); Lymphocytes Percent Auto 3.1 % (25-40); Mean Corpuscular HGB Conc 31.9 % (30-36); Mean Corpuscular Hemoglobin 30.1 PG (26-34); Mean Corpuscular Volume 94.3 fL (80-100); Monocytes Absolute Auto 200 /uL (0-900); Monocytes Percent Auto 1.6 % (3-14); Neutrophils Absolute Auto 13700 /uL (1500-7000); Neutrophils Percent Auto 95.2 % (50-75); Platelet Count 250 X10^3/uL (150-400); Red Blood Cell Count 4.02 X10^6/uL (4.0-5.2); Red Cell Distribution Width 13.3 % (11.6-14.8); White Blood Cell Count 14.3 X10^3/uL (4.5-11.0)
[2020-02-25 05:13] LABS: Alanine Aminotransferase 19 IU/L (<35); Albumin 3.5 g/dL (3.5-5.0); Albumin Globulin Ratio 1.3 (1.0-2.8); Alkaline Phosphatase 64 U/L (38-126); Aspartate Aminotransferase 21 IU/L (14-36); Bilirubin Total 0.6 mg/dL (0.2-1.3); Blood Urea Nitrogen 21 mg/dL (7-17); Calcium 9.5 mg/dL (8.4-10.2); Chloride 91 mmol/L (98-107); Estimated Glomerular Filt Rate > 60.0 mL/min (>60); Globulin 2.8 g/dL (1.7-4.1); Glucose 146 mg/dL (80-110); HEMOLYSIS < 15 (0-50); Potassium 4.7 mmol/L (3.4-5.1); Sodium 137 mmol/L (137-145); Total Protein 6.3 g/dL (6.3-8.2)
[2020-02-25 05:24] LABS: Carbon Dioxide 41 mmol/L (22-32)
[2020-02-25 05:27] LABS: Procalcitonin < 0.05 ng/mL (<0.5)
[2020-02-25] MEDS: ALBUTEROL/IPRATROPIUM 3 ML AMPUL INH ×5 (06:00→22:25)
--- NOTE | 2020-02-25 06:26 | PC.NURSE ---
Wellness Spa Manager Note-Patient states she feels her breathing is better, used Bi-pap intermittently, otherwise was on 3-5L NC, SpO2 88-98% most of the time, RR 30s-40, lung sounds dim and tight. Up to BSC with mild dyspnea. Mostly c/o horrible dry mouth glycerine swabs, mouth moister, chap stick, and water given with little relieve.
[2020-02-25] MEDS: BUDESONIDE 0.5 MG/2 ML NEB INH ×2 (07:59→22:25)
[2020-02-25 08:31] LABS: pH ABG 7.43 (7.35-7.45)
[2020-02-25 08:32] LABS: Fractionated Inspired Oxygen 30; HCO3 ABG 43 mmol/L (22-26); Oxygen Saturation ABG 89 % (95-100); PCO2 ABG 65.2 mmHg (35-45); PO2 ABG 59 mmHg (80-100); TCO2 ABG 45 mmol/L (21-31)
[2020-02-25] MEDS: ENOXAPARIN 40 MG/0.4 ML SYRINGE SUBCUT (08:50)
[2020-02-25] MEDS: AZITHROMYCIN 250 MG TABLET PO (08:51)
[2020-02-25] MEDS: ASPIRIN 81 MG CHEW TAB PO (08:51)
[2020-02-25] MEDS: PANTOPRAZOLE 40 MG TABLET PO (08:52)
[2020-02-25] MEDS: guaiFENesin ER 600 MG TAB 1200 MG PO ×2 (08:52→21:15)
[2020-02-25] MEDS: FAMOTIDINE 20 MG TABLET 40 MG PO (08:53)
--- NOTE | 2020-02-25 10:08 | DI.ECHO.S_ITS ---
[place] +---------+ Hospital +---------+ : : [address] : : : : [id number] : : : : Phone: [phone]+ Echocardiogram Report + + :Name: MIGUEL MATTHEW Study Date: 02/25/2020 Height: 64 in : :[facility] Weight: 176 lb : : Gender: Female BSA: 1.9 m2 : :: 1945 Age: 74 yrs BP: 139/72 mmHg: :Reason For Study: SOB, HYPOXEMIA : : Performed By: Rome Tuttle : :Referring: LORAINE VASQUEZ : + + Interpretation Summary The ejection fraction is estimated to be 65-70%. There is no significant valvular heart disease. Procedure: A two-dimensional transthoracic echocardiogram with color flow and Doppler was performed. The study quality was technically difficult. Comparison is made with the echocardiogram of 12/04/05. The subcostal views were difficult to obtain and are suboptimal in quality. The patient was in normal sinus rhythm during the exam. The patient was tachycardic with a heart rate of 101-122 beats per minute. Left Ventricle: The left ventricle is normal in size. There is normal left ventricular wall thickness. The ejection fraction is estimated to be 65-70%. Regional wall motion abnormalities cannot be excluded due to limited visualization. Right Ventricle: The right ventricle grossly appears normal in size with probable normal systolic function. Atria: Both atria are normal in size. Mitral Valve: The mitral valve is normal in structure and function. There is no mitral regurgitation noted. Aortic Valve: The aortic valve is trileaflet. The aortic valve opens well. No aortic regurgitation is present. Tricuspid Valve: The tricuspid valve is normal in structure and function. There is trace tricuspid regurgitation. Right ventricular systolic pressure is estimated to be 18 mmHg plus the clinically estimated CVP which cannot be estimated on this exam. Pulmonic Valve: The pulmonic valve is normal in structure and function. There is trace pulmonic regurgitation. Great Vessels: The aortic root is normal size. The dimensions of the ascending aorta are normal. The pulmonary artery is normal size. The inferior vena cava was not well visualized. Pericardium/ Pleura There is no pericardial effusion. There is an anterior echo-free space consistent with a fat pad. There is no pleural effusion. MMode/2D Measurements & Calculations LVIDd: 4.4 cm LVOT diam: 2.4 cm LVIDs: 3.2 cm Ao root diam: 2.8 cm FS: 27.3 % asc Aorta Diam: 3.3 cm EPSS: 0.59 cm IVSd: 0.82 cm LVPWd: 0.88 cm LV mccauley. diameter/BSA (cm/m^2): 2.4 LV sys. diameter/BSA (cm/m^2): 1.7 LA dimension: 3.1 cm RA long axis: 3.6 cm LA A2 area: 18.4 cm2 RA area: 10.0 cm2 LA A4 area: 11.4 cm2 RA vol: 23.4 ml LA length (vol): 4.6 cm RA : 12.6 ml/m2 LA vol: 39.2 ml LA vol index: 21.2 ml/m2 Doppler Measurements & Calculations Ao V2 max: 94.3 cm/sec LVOT Max Diego: 86.7 cm/sec Ao V2 mean: 75.5 cm/sec LV V1 max P.0 mmHg Ao max P.6 mmHg LV V1 VTI: 17.2 cm Ao mean P.4 mmHg HERLINDA(I,D): 4.6 cm2 Ao V2 VTI: 17.0 cm HERLINDA(V,D): 4.2 cm2 sev ratio: 1.0 HERLINDA indexed to BSA (cm^2/m^2): 2.5 MV E max diego: 56.1 cm/sec TR max diego: 214.2 cm/sec MV A max diego: 72.6 cm/sec TR max P.3 mmHg MV E/A: 0.77 PA V2 max: 104.2 cm/sec Med Peak E' Diego: 4.2 cm/sec PA V2 mean: 85.3 cm/sec E/E' med: 13.3 PA mean P.1 mmHg Lat Peak E' Diego: 6.6 cm/sec PA pr(Accel): 22.5 mmHg E/E' lat: 8.5 E/e' average: 10.9 MV dec time: 0.17 sec SV(LVOT): 77.9 ml Reading Physician:12:44 PM
[2020-02-25] MEDS: MORPHINE 2 MG/ML INJ 1 MG IV (10:32)
[2020-02-25] MEDS: FUROSEMIDE 40 MG/4 ML VIAL IV (10:32)
--- NOTE | 2020-02-25 11:56 | DI.RAD.S_ITS ---
PROCEDURE: XR CHEST 1V INDICATIONS: shortness of breath, COPD TECHNIQUE: One view of the chest was acquired. COMPARISON: [facility], CR, XR CHEST 1V, 02/24/2020, 8:21. FINDINGS: Surgical changes and devices: None. Lungs and pleura: Minimal bibasilar opacities are present. Trace blunting of the costophrenic angles is present. Mediastinum: Mediastinal contours appear normal. Heart size is normal. Bones and chest wall: No suspicious bony lesions. Overlying soft tissues appear unremarkable. IMPRESSION: Minimal bibasilar opacities, possibly representing developing airspace disease such as pneumonia/atelectasis. Dictated by: Kimberly Gooden M.D. on 02/25/2020 at 12:33 Approved by: Kimberly Gooden M.D. on 02/25/2020 at 12:35
[2020-02-25] MEDS: LORazepam 2 MG/ML INJ 1 MG IV (12:19)
--- NOTE | 2020-02-25 12:26 | CM.DANOTE ---
Addendum entered by Flor Bermudez R.N. 02/25/20 15:10: Met with patient in room, as well as , Jonny. was upset, thought that she was going to a intermediate permanently. Apologized to , and mentioned that halfway rehab would be an option if she was too weak to go home right away. After explaining this to patient and , he understood. They are interested in home health, mentioned this briefly. They have no preference upon agencies. Spoke to Dr. Dent, who stated, anticipate that she will be here for a few days, and that she may need skilled before going home. Liza at [facility] has referral, and Jaspal in [facility] stated that she should make inpatient status. Original Note: DCP: Case received, EMR reviewed. Checked on patient, unable to provide information on her baseline status, for she is on BIPAP. She can still speak and not, ok to contact for information. Called , Jonny. Introduced self and role over the phone. Was able to complete DCP assessment based on 's information, chart, and rounds. Patient is a 74 year old female who admitted yesterday morning to the care of the hospitalist team. PCP: Dr. Ruelas. Payer: confirmed: Medicare/[employer]. Patient came to the hospital via ambulance secondary to exacerbated shortness of breath. Patient is on 3 liters of oxygen at home at baseline. Patient has history of COPD, CHF. She is noted to have hypercapnic respiratory failure, and has been placed on BIPAP. Met with patient during team rounds, had on BIPAP, but having trouble with breathing. She was able to speak briefly and answer some questions. Dr. Dent is performing tests on patient, x-rays. Patient is to be given some Ativan to help her with anxiety. Spoke to patient's , Jonny. Confirmed that she is on home oxygen. Asked him how she gets around, he stated, slowly. Asked him if she has been to a skilled rehab facility before, stated that she has not. He indicated that their daughter, Maura, will be coming up from [place]. Patient no longer drives. P: DCP to continue to follow and be available for any resources needed. Patient lives here in [place], called October at [facility] to review, in case she needs halfway. Will need to be reviewed by [facility] to see if she becomes inpatient status. Flor Bermudez RN/Operating Engineer Apprentice
[2020-02-25 13:08] LABS: Creatine Kinase 58 U/L (30-135)
--- NOTE | 2020-02-25 13:17 | P.PN_ITS ---
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 The patient is resting in bed and now appears more comfortable after receiving lorazepam. She was quite anxious and tachypneic this morning which improved with administration of lorazepam. Her right shoulder blade pain also improved with lorazepam. She endorses feeling mildly short of breath. She continues to complain of severely dry mouth which she has had for several months and reports it feels like ?it's choking her.? She tolerated BiPAP overnight. Performed ABG and adjusted BiPAP settings accordingly currently on BiPAP 28/12 with FiO2 0.32 with tidal volumes 490-515 and respiratory rate 20-30. She continues to have hypercarbia but improved initially from 78 to low 60s. Discussed case with on- call char conveyor tender at [facility], Dr. Shields, over the phone who agrees with plan of care and has nothing further to add other it may be several days before the patient starts to have improvement and will likely do better on trilogy. Patient has severe COPD with emphysema and it is unclear if this is end-stage COPD as patient has not had recent pulmonary function testing. Plan to give furosemide 40 mg IV x1 to possibly help with shortness of breath and tachypnea if related to pulmonary edema and ordered echocardiogram, pending. Patient denies headache, chest pain, abdominal pain, nausea, vomiting, fever, chills, dysuria, diarrhea or constipation. She is voiding without difficulty however, plan to place Mueller due to decreased mobility with potential for skin breakdown and more accurate I&Os. She has not had a bowel movement since admission and have implemented as needed bowel regimen. She is up minimally with assistance due to respiratory failure with tachypnea. Exam Vital Signs (past 8 hours): - 02/25/20 07:55 02/25/20 08:00 02/25/20 09:00 Temperature 97.8 F Pulse Rate 85 Respiratory Rate 18 28 H Blood Pressure 142/63 H 139/72 Pulse Oximetry 94 91 02/25/20 09:18 02/25/20 09:25 02/25/20 09:38 Temperature Pulse Rate Respiratory Rate 25 H Blood Pressure 139/72 139/72 Pulse Oximetry 91 02/25/20 10:04 02/25/20 12:00 Temperature Pulse Rate Respiratory Rate Blood Pressure Pulse Oximetry 93 93 Fraction of Inspired Oxygen 32 Oxygen Delivery Method BiPAP Oxygen Flow Rate 50 Narrative Exam Narrative: General: Elderly female sitting in bed, well-developed, well-nourished, improved tachypnea, appropriately interactive. HEENT: Normocephalic, atraumatic. External ears without defect. Pupils equal, round, and reactive to light. Anicteric sclerae, moist conjunctivae, and no lid lag. Oropharynx free of erythema and cobble stoning with moist mucosa. BiPAP mask in place. Neck: Supple with full range of motion. No jugular venous distension. No lymphadenopathy or thyromegaly. Cardiovascular: Regular rhythm, tachycardic, without murmurs, rubs, or gallops appreciated. Pulmonary: Significantly diminished throughout with poor aeration but clear to auscultation bilaterally. No wheezes, rhonchi or crackles. Improved tachypnea a with mild use of accessory muscles. Pursed lip breathing. Abdomen: Soft, bowel sounds present, nontender, nondistended. No hepa tosplenomegaly or masses appreciated. Extremities: No clubbing or cyanosis. Mild bilateral pitting edema to pretibial area with venous stasis changes. Skin: Normal temperature, turgor, and texture; no rash, ulcers, or subcutaneous nodules appreciated. Neurological: Cranial nerves grossly intact. Psychiatric: Normal mood and affect. Alert and oriented to person, place, and time. Objective Labs Result Diagrams: 02/25/20 04:30 02/25/20 04:30 Labs: Laboratory Results - last 24 hr 02/24/20 02/24/20 02/24/20 12:15 15:15 15:35 WBC RBC Hgb Hct MCV MCH MCHC RDW Plt Count Neut % (Auto) Lymph % (Auto) [place] % (Auto) Eos % (Auto) Baso % (Auto) Neut # (Auto) Lymph # (Auto) [place] # (Auto) Eos # (Auto) Baso # (Auto) ABG pH 7.43 ABG pCO2 61.9 H* ABG pO2 72 L ABG HCO3 42 H ABG Total CO2 43 H ABG O2 Saturation 94 L ABG Base Excess 17.0 H FiO2 30 Sodium Potassium Chloride Carbon Dioxide BUN Creatinine Estimated GFR BUN/Creatinine Ratio Glucose Calcium Magnesium Total Bilirubin AST ALT Alkaline Phosphatase Total Creatine Kinase CK-MB (CK-2) CK-MB (CK-2) Rel Index Total Protein Albumin Globulin Albumin/Globulin Ratio Procalcitonin Urine Color Yellow Urine Appearance Clear Urine pH 5.0 Ur Specific [place] 1.025 Urine Protein Trace H Urine Glucose (UA) Negative Urine Ketones Negative Urine Occult Blood Trace-lysed Urine Nitrate Negative Urine Bilirubin Negative Urine Urobilinogen 0.2 Ur Leukocyte Esterase Negative Urine RBC 0-1/hpf Urine WBC 1-5/hpf Ur Squamous Epith Cells 1-5 /hpf Ur Transition Epith Cell 1-5/hpf Ur Renal Epithelial Cell 0-1/hpf Amorphous Sediment 2+ Urine Bacteria Few (2-10) H Hyaline Casts 1-5/lpf Ur Culture Indicated? Cult not indicated Nasal Screen MRSA (PCR) Negative for mrsa 02/25/20 02/25/20 02/25/20 04:30 04:30 04:30 WBC 14.3 H RBC 4.02 Hgb 12.1 Hct 37.9 MCV 94.3 MCH 30.1 MCHC 31.9 RDW 13.3 Plt Count 250 Neut % (Auto) 95.2 H Lymph % (Auto) 3.1 L [place] % (Auto) 1.6 L Eos % (Auto) 0.0 L Baso % (Auto) 0.1 Neut # (Auto) 05522 H Lymph # (Auto) 400 L [place] # (Auto) 200 Eos # (Auto) 0 Baso # (Auto) 0 ABG pH ABG pCO2 ABG pO2 ABG HCO3 ABG Total CO2 ABG O2 Saturation ABG Base Excess FiO2 Sodium 137 Potassium 4.7 Chloride 91 L Carbon Dioxide 41 H* BUN 21 H Creatinine 0.60 Estimated GFR > 60.0 BUN/Creatinine Ratio 35.0 H Glucose 146 H Calcium 9.5 Magnesium 2.0 Total Bilirubin 0.6 AST 21 ALT 19 Alkaline Phosphatase 64 Total Creatine Kinase CK-MB (CK-2) CK-MB (CK-2) Rel Index Total Protein 6.3 Albumin 3.5 Globulin 2.8 Albumin/Globulin Ratio 1.3 Procalcitonin < 0.05 Urine Color Urine Appearance Urine pH Ur Specific [place] Urine Protein Urine Glucose (UA) Urine Ketones Urine Occult Blood Urine Nitrate Urine Bilirubin Urine Urobilinogen Ur Leukocyte Esterase Urine RBC Urine WBC Ur Squamous Epith Cells Ur Transition Epith Cell Ur Renal Epithelial Cell Amorphous Sediment Urine Bacteria Hyaline Casts Ur Culture Indicated? Nasal Screen MRSA (PCR) 02/25/20 02/25/20 04:30 08:14 WBC RBC Hgb Hct MCV MCH MCHC RDW Plt Count Neut % (Auto) Lymph % (Auto) [place] % (Auto) Eos % (Auto) Baso % (Auto) Neut # (Auto) Lymph # (Auto) [place] # (Auto) Eos # (Auto) Baso # (Auto) ABG pH 7.43 ABG pCO2 65.2 H* ABG pO2 59 L ABG HCO3 43 H ABG Total CO2 45 H ABG O2 Saturation 89 L ABG Base Excess 19.0 H FiO2 30 Sodium Potassium Chloride Carbon Dioxide BUN Creatinine Estimated GFR BUN/Creatinine Ratio Glucose Calcium Magnesium Total Bilirubin AST ALT Alkaline Phosphatase Total Creatine Kinase 58 CK-MB (CK-2) TNP CK-MB (CK-2) Rel Index TNP Total Protein Albumin Globulin Albumin/Globulin Ratio Procalcitonin Urine Color Urine Appearance Urine pH Ur Specific [place] Urine Protein Urine Glucose (UA) Urine Ketones Urine Occult Blood Urine Nitrate Urine Bilirubin Urine Urobilinogen Ur Leukocyte Esterase Urine RBC Urine WBC Ur Squamous Epith Cells Ur Transition Epith Cell Ur Renal Epithelial Cell Amorphous Sediment Urine Bacteria Hyaline Casts Ur Culture Indicated? 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 1. Acute hypercapnic and chronic hypoxemic respiratory failure, present on admission. Active. -ABG demonstrated compensated respiratory acidosis with hypoxemic and hypercapnic respiratory failure: pH 7.36, pO2 69, CO2 78.4 and bicarb 44 with SpO2 91% on FiO2 0.28. -CTA chest on 02/21/2020 demonstrated centrilobular emphysema with no acute cardiopulmonary process. No PE. -Consulted respiratory therapy for evaluation treatment. Continue BiPAP at current settings and monitor ABG as necessary to adjust settings. Continue supplemental oxygen to maintain oxygen saturations 88-92%. Do not want to over oxygenate patient as this will precipitate hypercarbia. Continue DuoNebs every 4 hours while awake, albuterol nebs every 2 hours as needed for shortness of breath or wheezing, and Pulmicort nebs twice daily. -Ordered Ativan 1 mg IV every 4 hours as needed for shortness of breath or anxiety and morphine 1 mg IV every 4 hours as needed for shortness of breath and tachypnea. -Patient requires noninvasive ventilator due to severity of COPD, to decrease work of breathing and improve pulmonary status; interruption of respiratory support could lead to serious harm i.e, decline in health status, worsening of condition, increase risk of CO2 retention, untimely readmissions and/or . Plan to contact patient's oxygen company [employer] to acquire home trilogy. -Discussed case with on-call char conveyor tender at [facility], Dr. Shields, over the phone who agrees with plan of care and has nothing further to add other than it may be several days before the patient starts to have any improvement and will likely do better on Trilogy. Patient has severe COPD with emphysema and it is unclear if this is end-stage COPD as patient has not had recent pulmonary function testing. 2. Acute COPD exacerbation, present on admission. Active. -Patient failed outpatient treatment with prednisone taper and azithromycin 250 mg daily as an outpatient (which she usually takes 3 times a week for prophylaxis of COPD exacerbation). -Consulted respiratory therapy for evaluation treatment. Continue BiPAP at current settings and monitor ABG as necessary to adjust settings. Continue supplemental oxygen to maintain oxygen saturations 88-92%. Do not want to over oxygenate patient as this will precipitate hypercarbia. Continue DuoNebs every 4 hours while awake, albuterol nebs every 2 hours as needed for shortness of breath or wheezing, and Pulmicort nebs twice daily. -Received methylprednisolone 125 mg IV x1 in ED. Continue methylprednisolone 60 mg IV every 8 hours and will slowly titrate down once breathing improves. -Continue Mucinex 1200 mg twice daily. 3. Possible right lower lobe bacterial pneumonia, present on admission. Active. -Patient presented with shortness of breath, mildly productive cough, chest congestion, rhinitis, mild sore throat, recent tonsillar exudates and right shoulder blade pain. The patient has been on prednisone taper and azithromycin 250 mg daily as an outpatient. Of note, the patient usually takes azithromycin 250 mg 3 times a week for prophylaxis of COPD exacerbation. -Chest x-ray demonstrated emphysema with probable early right-sided pneumonia versus mild pulmonary edema. -CTA chest on 02/21/2020 demonstrated centrilobular emphysema with no acute cardiopulmonary process. No PE. -Initial WBC mildly elevated at 11.1 and procalcitonin negative at < 0.05. WBC trended up to 14.3 likely due to glucocorticoids and procalcitonin remains negative at < 0.05. Continue to monitor WBC and procalcitonin daily. -Ordered complete pneumonia workup including: Respiratory viral PCR and COVID- 19 negative. Strep pneumoniae and Legionella urine antigens, pending. Sputum culture ordered but not yet obtained. Blood culture x2 have no growth to date. -Continue azithromycin 250 mg daily and started ceftriaxone 2 g IV daily for 5 days. 4. GERD, chronic, present on admission. Stable. -Continue home famotidine 40 mg daily and equivalent of home PPI with Protonix 40 mg daily. 5. Venous insufficiency with lower extremity edema, chronic, present on admission. Stable. -Patient does not appear overtly fluid overloaded but does have mild bilateral pitting edema to pretibial area likely due to venous insufficiency. -ProBNP 259. -Chest x-ray demonstrated emphysema with probable early right-sided pneumonia versus mild pulmonary edema. -Echocardiogram demonstrated normal LV size and function with EF 65-70%, right ventricle grossly appears normal in size with probable normal systolic function, no significant valvular heart disease., RVSP estimated to be 18 mmHg plus the clinically estimated CVP which cannot be estimated on this exam. -Received furosemide 40 mg IV x1 today to possibly improve shortness of breath if related to pulmonary edema. Code status: Limited Code (no CPR, cardioversion or intubation and allows for BiPAP or vasopressors if needed), surrogate decision maker is designated as patient's spouse Jonnyyana Teez VTE prophylaxis: Enoxaparin, SCDs Critical care time spent: 70 minutes Disposition: Patient remains hospitalized. Quality VTE Deep Vein Thrombosis/Pulmonary Embolism Present on Admission: No
[2020-02-25 13:19] LABS: Troponin I 0.012 ng/mL (0.01-0.034)
[2020-02-25] MEDS: CEFTRIAXONE 2 GM/50 ML FROZ.PIGGY IV (14:47)
[2020-02-25] MEDS: SODIUM CHLORIDE NASAL SPRAY 1 SPRAY NASAL (14:48)
[2020-02-25 14:56] LABS: HCO3 ABG 44 mmol/L (22-26); PO2 ABG 82 mmHg (80-100); TCO2 ABG 45 mmol/L (21-31); pH ABG 7.46 (7.35-7.45)
[2020-02-25 14:57] LABS: Fractionated Inspired Oxygen 32; Oxygen Saturation ABG 96 % (95-100); PCO2 ABG 61.5 mmHg (35-45)
[2020-02-25] MEDS: DOCUSATE 100 MG CAPSULE PO (18:32)
[2020-02-25] MEDS: polyethylene glycoL 3350 17 GM POWD.PACK PO (18:32)
--- NOTE | 2020-02-25 22:48 | PC.NURSE ---
Evening shift note: Pt with uneventful shift. Pt spent the majority of the shift on bipap, 16/8 with FiO2 30%. Pt with RR mostly 24 on bipap. Pt was on HHF NC 50 L flow and 35% FiO2 for dinner, lasted ~ 1.5 hours. Pt was in orthopneic position, pursed lip breathing, accessory muscle use. Mueller in place, clear yellow urine draining. Pt otherwise mostly sleeping on bipap. Will continue to monitor, notify MD with changes.
[2020-02-26] VITALS (47 sets, daily range): BP systolic 119–170; BP diastolic 59–88; PULSE 85–114; RESP 16–42; TEMP 31–39.2; O2SAT 81–96
[2020-02-26] MEDS: methylPREDNISolone 125 MG/2 ML VIAL 60 MG IV ×3 (00:15→20:54)
[2020-02-26 05:33] LABS: Add Manual Diff / Slide Review NO; Basophils Absolute Auto 0 /uL (0-100); Eosinophils Absolute Auto 0 /uL (0-450); Hemoglobin 11.4 g/dL (12.0-16.0); Lymphocytes Absolute Auto 500 /uL (1100-4500); Lymphocytes Percent Auto 2.9 % (25-40); Mean Corpuscular HGB Conc 32.5 % (30-36); Mean Corpuscular Hemoglobin 30.5 PG (26-34); Monocytes Absolute Auto 300 /uL (0-900); Monocytes Percent Auto 1.8 % (3-14); Neutrophils Absolute Auto 14600 /uL (1500-7000); Neutrophils Percent Auto 95.3 % (50-75); Platelet Count 254 X10^3/uL (150-400); Red Blood Cell Count 3.72 X10^6/uL (4.0-5.2); Red Cell Distribution Width 13.1 % (11.6-14.8); White Blood Cell Count 15.4 X10^3/uL (4.5-11.0)
[2020-02-26 05:46] LABS: Alanine Aminotransferase 19 IU/L (<35); Albumin 3.3 g/dL (3.5-5.0); Albumin Globulin Ratio 1.3 (1.0-2.8); Alkaline Phosphatase 56 U/L (38-126); Aspartate Aminotransferase 24 IU/L (14-36); BUN Creatinine Ratio 43.8 (6-22); Bilirubin Total 0.5 mg/dL (0.2-1.3); Blood Urea Nitrogen 28 mg/dL (7-17); Calcium 9.1 mg/dL (8.4-10.2); Chloride 91 mmol/L (98-107); Estimated Glomerular Filt Rate > 60.0 mL/min (>60); Globulin 2.5 g/dL (1.7-4.1); Glucose 133 mg/dL (80-110); HEMOLYSIS < 15 (0-50); Potassium 3.8 mmol/L (3.4-5.1); Sodium 135 mmol/L (137-145); Total Protein 5.8 g/dL (6.3-8.2)
[2020-02-26 05:55] LABS: Carbon Dioxide 43 mmol/L (22-32)
[2020-02-26 06:00] LABS: Procalcitonin < 0.05 ng/mL (<0.5)
--- NOTE | 2020-02-26 06:03 | PC.NURSE ---
Addendum entered by Farida Newman R.N. 02/26/20 06:11: Serum C02 43 - Stephanie MERCADO notified. No new orders received. Original Note: Patient tolerated Bipap overnight. Placed on HHFNC Fi02 45%/6L by RT. Patient denies SOB. RR 24-26, Sp02 94% with pursed lip breathing and frequent breaks in conversation to recover. Patient reminded to alert staff if she feels her breathing is worsening and she needs placed back on Bipap, verbalized understanding. IV to right AC with some leaking - blood return noted, as well as easy flushing; dressing changed. No acute changes this shift.
[2020-02-26] MEDS: LORazepam 2 MG/ML INJ 1 MG IV ×2 (08:00→11:50)
[2020-02-26] MEDS: ASPIRIN 81 MG CHEW TAB PO (08:08)
[2020-02-26] MEDS: guaiFENesin ER 600 MG TAB 1200 MG PO ×2 (08:08→20:57)
[2020-02-26] MEDS: FAMOTIDINE 20 MG TABLET 40 MG PO (08:08)
[2020-02-26] MEDS: PANTOPRAZOLE 40 MG TABLET PO (08:09)
[2020-02-26] MEDS: ACETAMINOPHEN 325 MG TABLET 650 MG PO (08:11)
[2020-02-26 08:12] LABS: HCO3 ABG 44 mmol/L (22-26); PCO2 ABG 69.1 mmHg (35-45); PO2 ABG 102 mmHg (80-100); TCO2 ABG 46 mmol/L (21-31); pH ABG 7.41 (7.35-7.45)
[2020-02-26 08:13] LABS: Fractionated Inspired Oxygen 45; Oxygen Saturation ABG 98 % (95-100)
[2020-02-26 08:41] LABS: TSH w/ Reflex to FT4 0.72 uIU/mL (0.47-4.68)
--- NOTE | 2020-02-26 08:41 | P.PN_ITS ---
Subjective Subjective Date Patient Seen: 02/26/20 Interval history: Dorothy Metzger is a 74-year-old female with a past medical history of COPD emphysema type with chronic hypoxemic respiratory failure and oxygen dependence on 3 L of O2 at baseline and GERD who presented to the ED complaining of increasing shortness of breath for 2-3 days and right shoulder blade pain. The patient is resting in bed comfortably. She tolerated BiPAP overnight. Plan to allow for breaks on BiPAP with meals today. She continues to have mild tachypnea and shortness of breath but is slightly improved. She reports her dry mouth is improved with water intake and nasal saline rinses. She continues to have bilateral shoulder blade pain which is musculoskeletal and due to muscle tension noted on exam and is improved with lorazepam. She denies headache, chest pain, abdominal pain, nausea, vomiting, fever, chills, dysuria, diarrhea or constipation. She is voiding via Mueller catheter. She has not had a bowel movement since admission and a bowel regimen has been implemented. She is up minimally with assistance due to respiratory failure with tachypnea. The patient's daughter Maura Metzger is present at bedside and she was educated regarding the patient's condition, updated on plan of care and all questions were answered. Exam Vital Signs (past 8 hours): - 02/26/20 02:23 02/26/20 04:45 02/26/20 06:00 Temperature 97.0 F L Pulse Rate 96 H Respiratory Rate 29 H Blood Pressure 130/66 Pulse Oximetry 91 93 93 02/26/20 06:14 02/26/20 08:00 Temperature 97.8 F Pulse Rate 100 H Respiratory Rate 20 Blood Pressure 152/83 H Pulse Oximetry 94 96 Fraction of Inspired Oxygen 31 Oxygen Delivery Method Heated High Flow Oxygen Flow Rate 45 Narrative Exam Narrative: General: Elderly female sitting in bed, well-developed, well-nourished, improved tachypnea, appropriately interactive. HEENT: Normocephalic, atraumatic. External ears without defect. Pupils equal, round, and reactive to light. Anicteric sclerae, moist conjunctivae, and no lid lag. Oropharynx free of erythema and cobble stoning with moist mucosa. BiPAP mask in place. Neck: Supple with full range of motion. No jugular venous distension. No lymphadenopathy or thyromegaly. Cardiovascular: Regular rhythm, tachycardic, without murmurs, rubs, or gallops appreciated. Pulmonary: Diminished throughout with improved aeration and clear to auscultation bilaterally in all lung bullock. No wheezes, rhonchi or crackles. Improved tachypnea a with mild use of accessory muscles. Pursed lip breathing. Abdomen: Soft, bowel sounds present, nontender, nondistended. No hepatosplenomegaly or masses appreciated. Extremities: No clubbing or cyanosis. Mild bilateral pitting edema to ankles with venous stasis changes. Skin: Normal temperature, turgor, and texture; no rash, ulcers, or subcutaneous nodules appreciated. Neurological: Cranial nerves grossly intact. Psychiatric: Normal mood and affect. Alert and oriented to person, place, and time. Objective Labs Result Diagrams: 02/26/20 04:35 02/26/20 04:35 Labs: Laboratory Results - last 24 hr 02/25/20 02/25/20 02/26/20 04:30 14:43 04:35 WBC 15.4 H RBC 3.72 L Hgb 11.4 L Hct 35.0 L MCV 94.0 MCH 30.5 MCHC 32.5 RDW 13.1 Plt Count 254 Neut % (Auto) 95.3 H Lymph % (Auto) 2.9 L Fleming % (Auto) 1.8 L Eos % (Auto) 0.0 L Baso % (Auto) 0.0 Neut # (Auto) 48067 H Lymph # (Auto) 500 L Fleming # (Auto) 300 Eos # (Auto) 0 Baso # (Auto) 0 ABG pH 7.46 H ABG pCO2 61.5 H* ABG pO2 82 ABG HCO3 44 H ABG Total CO2 45 H ABG O2 Saturation 96 ABG Base Excess 20.0 H FiO2 32 Sodium Potassium Chloride Carbon Dioxide BUN Creatinine Estimated GFR BUN/Creatinine Ratio Glucose Calcium Magnesium Total Bilirubin AST ALT Alkaline Phosphatase Total Creatine Kinase 58 CK-MB (CK-2) TNP CK-MB (CK-2) Rel Index TNP Troponin I 0.012 Total Protein Albumin Globulin Albumin/Globulin Ratio Procalcitonin 02/26/20 02/26/20 02/26/20 04:35 04:35 07:40 WBC RBC Hgb Hct MCV MCH MCHC RDW Plt Count Neut % (Auto) Lymph % (Auto) Fleming % (Auto) Eos % (Auto) Baso % (Auto) Neut # (Auto) Lymph # (Auto) Fleming # (Auto) Eos # (Auto) Baso # (Auto) ABG pH 7.41 ABG pCO2 69.1 H* ABG pO2 102 H ABG HCO3 44 H ABG Total CO2 46 H ABG O2 Saturation 98 ABG Base Excess 20.0 H FiO2 45 Sodium 135 L Potassium 3.8 Chloride 91 L Carbon Dioxide 43 H* BUN 28 H Creatinine 0.64 Estimated GFR > 60.0 BUN/Creatinine Ratio 43.8 H Glucose 133 H Calcium 9.1 Magnesium 2.0 Total Bilirubin 0.5 AST 24 ALT 19 Alkaline Phosphatase 56 Total Creatine Kinase CK-MB (CK-2) CK-MB (CK-2) Rel Index Troponin I Total Protein 5.8 L Albumin 3.3 L Globulin 2.5 Albumin/Globulin Ratio 1.3 Procalcitonin < 0.05 Assessment & Plan Assessment & Plan narrative: Dorothy Metzger is a 74-year-old female with a past medical history of COPD emphysema type with chronic hypoxemic respiratory failure and oxygen dependence on 3 L of O2 at baseline and GERD who presented to the ED complaining of increasing shortness of breath for 2-3 days and right shoulder blade pain. 1. Acute likely on chronic hypoxemic and hypercarbic respiratory failure, present on admission. Improving. -Secondary to COPD exacerbation and probable pneumonia. -ABG demonstrated compensated respiratory acidosis with hypoxemic and hypercapnic respiratory failure: pH 7.36, pO2 69, CO2 78.4 and bicarb 44 with SpO2 91% on FiO2 0.28. -CTA chest on 02/21/2020 demonstrated centrilobular emphysema with no acute cardiopulmonary process. No PE. -Consulted respiratory therapy for evaluation treatment. Continue BiPAP at current settings and monitor ABG as necessary to adjust settings. Continue supplemental oxygen to maintain oxygen saturations 88-92%. Do not want to over oxygenate patient as this will precipitate hypercarbia. Continue DuoNebs every 4 hours while awake, albuterol nebs every 2 hours as needed for shortness of breath or wheezing, and Pulmicort nebs twice daily. -Continue Ativan 1 mg IV every 4 hours as needed for shortness of breath or anxiety and morphine 1 mg IV every 4 hours as needed for shortness of breath and tachypnea. -Patient requires noninvasive ventilator due to severity of COPD, to decrease work of breathing and improve pulmonary status; interruption of respiratory support could lead to serious harm i.e, decline in health status, worsening of condition, increase risk of CO2 retention, untimely readmissions and/or . In process of acquiring home trilogy through patient's oxygen company [employer]. -Discussed case with on-call dough mixing machine operator at [facility], Dr. Shields, over the phone on 02/24 who agreed with plan of care and has nothing further to add other than it may be several days before the patient starts to have any improvement and will likely do better on Trilogy. Patient has severe COPD with emphysema and it is unclear if this is end-stage COPD as patient has not had recent pulmonary function testing in at least 10 years. 2. Acute COPD exacerbation, present on admission. Improving. -Patient failed outpatient treatment with prednisone taper and azithromycin 250 mg daily as an outpatient (which she usually takes 3 times a week for prophylaxis of COPD exacerbation). -Consulted respiratory therapy for evaluation treatment. Continue BiPAP at current settings and monitor ABG as necessary to adjust settings. Continue supplemental oxygen to maintain oxygen saturations 88-92%. Do not want to over oxygenate patient as this will precipitate hypercarbia. Continue DuoNebs every 4 hours while awake, albuterol nebs every 2 hours as needed for shortness of breath or wheezing, and Pulmicort nebs twice daily. -Received methylprednisolone 125 mg IV x1 in ED. Continue methylprednisolone 60 mg IV every 8 hours and will slowly titrate down once breathing improves. -Continue Mucinex 1200 mg twice daily. 3. Probable right lower lobe bacterial pneumonia, present on admission. Resolving. -Patient presented with shortness of breath, mildly productive cough, chest congestion, rhinitis, mild sore throat, recent tonsillar exudates and right shoulder blade pain. The patient has been on prednisone taper and azithromycin 250 mg daily as an outpatient. Of note, the patient usually takes azithromycin 250 mg 3 times a week for prophylaxis of COPD exacerbation. -Chest x-ray demonstrated emphysema with probable early right-sided pneumonia versus mild pulmonary edema. -CTA chest on 02/21/2020 demonstrated centrilobular emphysema with no acute cardiopulmonary process. No PE. -Initial WBC mildly elevated at 11.1 and procalcitonin negative at < 0.05. WBC trended up to 14.3 likely due to glucocorticoids and procalcitonin remains negative at < 0.05. Continue to monitor WBC and procalcitonin daily. -Ordered complete pneumonia workup including: Respiratory viral PCR and COVID- 19 negative. Strep pneumoniae and Legionella urine antigens, pending. Sputum culture ordered but not yet obtained. Blood culture x2 have no growth to date. -Continue azithromycin 250 mg daily and started ceftriaxone 2 g IV daily for 5 days. 4. Hypertension without previous diagnosis, present on admission. Active. -Patient has been mildly hypertensive throughout hospitalization with SBP 130s to 150s and mildly tachycardic with heart rate 90 to 110s. -Started diltiazem 30 mg every 6 hours and will titrate to effect. -Continue to monitor blood pressure closely. 5. GERD, chronic, present on admission. Stable. -Continue home famotidine 40 mg daily and equivalent of home PPI with Protonix 40 mg daily. 6. Venous insufficiency with lower extremity edema, chronic, present on admission. Stable. -Patient does not appear overtly fluid overloaded but does have mild bilateral pitting edema to pretibial area likely due to venous insufficiency. -ProBNP 259. -Chest x-ray demonstrated emphysema with probable early right-sided pneumonia versus mild pulmonary edema. -Echocardiogram demonstrated normal LV size and function with EF 65-70%, right ventricle grossly appears normal in size with probable normal systolic function, no significant valvular heart disease., RVSP estimated to be 18 mmHg plus the clinically estimated CVP which cannot be estimated on this exam. -Received furosemide 40 mg IV x1. Heart failure ruled out. -Continue to monitor strict I&Os and daily weights. Net -830 mL. Code status: Limited Code (no CPR, cardioversion or intubation and allows for BiPAP or vasopressors if needed), surrogate decision maker is designated as patient's spouse Jonny Yassine VTE prophylaxis: Enoxaparin, SCDs Critical care time spent: 60 minutes Disposition: Patient will likely discharge in [facility] Deep Vein Thrombosis/Pulmonary Embolism Present on Admission: No
[2020-02-26] MEDS: polyethylene glycoL 3350 17 GM POWD.PACK PO (09:12)
[2020-02-26] MEDS: dilTIAZem SR 60 MG PO (09:19)
[2020-02-26] MEDS: DOCUSATE 100 MG CAPSULE PO (09:19)
[2020-02-26] MEDS: ENOXAPARIN 40 MG/0.4 ML SYRINGE SUBCUT (10:16)
[2020-02-26] MEDS: ALBUTEROL/IPRATROPIUM 3 ML AMPUL INH ×3 (10:17→18:22)
[2020-02-26] MEDS: BUDESONIDE 0.5 MG/2 ML NEB INH ×2 (10:17→18:22)
[2020-02-26] MEDS: AZITHROMYCIN 250 MG TABLET PO (10:24)
[2020-02-26 11:22] LABS: pH ABG 7.42 (7.35-7.45)
[2020-02-26 11:23] LABS: PCO2 ABG 65.5 mmHg (35-45)
[2020-02-26 11:24] LABS: PO2 ABG 68 mmHg (80-100)
[2020-02-26 11:26] LABS: HCO3 ABG 43 mmol/L (22-26); Oxygen Saturation ABG 93 % (95-100); TCO2 ABG 45 mmol/L (21-31)
[2020-02-26] MEDS: dilTIAZem 30 MG TABLET PO ×2 (11:42→20:55)
[2020-02-26] MEDS: POTASSIUM CHLORIDE 20 MEQ TAB PO (11:43)
[2020-02-26] MEDS: MORPHINE 2 MG/ML INJ 1 MG IV (12:54)
--- NOTE | 2020-02-26 13:33 | PC.NURSE ---
Addendum entered by Re Silva R.N. 02/26/20 14:15: Pt was able to tolerate 35 min up to chair for lunch with humidified heated hiflow @ 30% Fio2. Pt continues to report Upper shoulder and back pain worsened with deep breathing/cough. Sputum sample sent to lab. Ativan x2 this shift, and APAP and Morphine x1. Pt is back on bipap and back to bed after meal, resting comfortably with RR 18-22 at rest. Tele SR. Luis added rate remains 90-100 at rest . Denies CP. Call light in reach. Update to daughter in room . Original Note: AM shift Pt is A/o x4, on HHF NC at start of shift ,45% FiO2. SOB with extended conversation or any bed mobility. Extended recorvery time to keep Spo2 88-92 and WOB at a comfortable level. ABG obtained, Dr Dent into review results and set goals of care for today. OOB TID and bipap as tolerated. Repeat ABG after bipap.
--- NOTE | 2020-02-26 14:44 | CM.DPC ---
Dcp Continued: EMR reviewed: CM faxed [facility] patient information and referral to get Triology set up here at the hospital. Bryan with [facility]iane will have trilogy brought to patient tomorrow. Patient is still preferring going home with home health but is okay with [facility] reviewing for SNF possibility. Dr. Dent stated that patient will not be ready for d/c for a few days. will need either a PASRR or F2F depending on D/C plan as it gets closer and how patients health progresses. Cm called fela at [facility] and left her a message to see if they will accept patient at d/c. Cm department will continue to follow patient and work on either SNF vs HH d/c depending on patients progression. Marylou Silva RN
[2020-02-26] MEDS: CEFTRIAXONE 2 GM/50 ML FROZ.PIGGY IV (14:53)
[2020-02-26 15:46] LABS: Legionella pneumo Antigen Negative (Negative)
--- NOTE | 2020-02-26 19:18 | RT ---
Placed on Trilogy after RN had placed on V60 for profound DeSat. O2 Bleed *
--- NOTE | 2020-02-26 19:21 | RT ---
RN placed on V60 for low Sat. I switched her over to Trilogy so that we can observe tolerance. She requires 5 L O2 Bleed In for adequate Sats. as charted.
[2020-02-26] MEDS: IPRATROPIUM 0.06% NASAL 15 ML 2 SPRAY NASAL (20:57)
--- NOTE | 2020-02-26 21:11 | PC.NURSE ---
shift note: Pt switched from bipap to Trilogy with 5L bleedin. Instructed in use of Trilogy by supplier. Up to the chair for dinner with 3L/NC tolerated well for about 1 hr then began to desat into the low 80's, returned to bed and placed on bipap with 50% O2 until she recovered, about 15 minutes. Then switched again to Trilogy. Will remain in this mode until AM per MD order. IV saline Locked, Mueller to draining cl yellow urine. Pt alert and cooperative with care. Will continue to monitor.
[2020-02-27] VITALS (22 sets, daily range): BP systolic 122–160; BP diastolic 60–73; PULSE 83–99; RESP 17–28; TEMP 36.2–36.7; O2SAT 88–94
[2020-02-27] MEDS: dilTIAZem 30 MG TABLET PO ×2 (00:15→05:01)
[2020-02-27] MEDS: methylPREDNISolone 125 MG/2 ML VIAL 60 MG IV ×3 (00:16→21:00)
--- NOTE | 2020-02-27 05:54 | PC.NURSE ---
Addendum entered by Richa Ceron R.N. 02/27/20 06:30: Patient notified this RN at 0612 of increased shortness of breath at rest. RT called and notified. Blood gas performed. PRN Morphine 1mg given per patient request for shortness of breath and work of breathing. Patient currently resting in bed, remains on Trilogy with 5L oxygen bled in. Sats currently 89%. Original Note: shift supervisor melting note: Patient slept well throughout the night using Trilogy machine with 5L oxygen bled into machine. Patient states she is much more comfortable with this machine versus hospital V60. Patient with shortness of breath and desaturating with mobility in bed. However, sats rebound after a few minutes. Sats ranging from 89-92%. Lungs diminished, and tight. Patient positioned and turned for comfort and to aid in breathing. Patient with VSS, SR on tele. Patient with buenrostro cath in place, good urine output throughout shift. Patient remains AOx4 and able to express needs/concerns. Patient currently resting in bed, call light in hand. Bed locked, low. Will continue to monitor.
[2020-02-27] MEDS: MORPHINE 2 MG/ML INJ 1 MG IV (06:22)
[2020-02-27 08:28] LABS: pH ABG 7.45 (7.35-7.45)
[2020-02-27 08:29] LABS: HCO3 ABG 44 mmol/L (22-26); Oxygen Saturation ABG 93 % (95-100); PCO2 ABG 62.7 mmHg (35-45); PO2 ABG 67 mmHg (80-100); TCO2 ABG 45 mmol/L (21-31)
[2020-02-27] MEDS: BUDESONIDE 0.5 MG/2 ML NEB INH ×2 (08:42→21:18)
[2020-02-27] MEDS: ENOXAPARIN 40 MG/0.4 ML SYRINGE SUBCUT (08:42)
[2020-02-27] MEDS: ALBUTEROL/IPRATROPIUM 3 ML AMPUL INH ×5 (08:42→21:18)
[2020-02-27] MEDS: FAMOTIDINE 20 MG TABLET 40 MG PO (08:43)
[2020-02-27] MEDS: dilTIAZem CD 180 MG CAP PO (08:43)
[2020-02-27] MEDS: DOCUSATE 100 MG CAPSULE PO (08:43)
[2020-02-27] MEDS: guaiFENesin ER 600 MG TAB 1200 MG PO ×2 (08:43→21:00)
[2020-02-27] MEDS: AZITHROMYCIN 250 MG TABLET PO (08:44)
[2020-02-27] MEDS: ASPIRIN 81 MG CHEW TAB PO (08:45)
[2020-02-27] MEDS: IPRATROPIUM 0.06% NASAL 15 ML 2 SPRAY NASAL ×2 (08:45→21:01)
[2020-02-27] MEDS: PANTOPRAZOLE 40 MG TABLET PO (08:45)
[2020-02-27] MEDS: MAGNESIUM HYDROXIDE 30 ML UDC PO (08:46)
[2020-02-27] MEDS: polyethylene glycoL 3350 17 GM POWD.PACK PO (08:46)
[2020-02-27] MEDS: LORazepam 1 MG TABLET PO ×2 (09:10→21:12)
--- NOTE | 2020-02-27 10:25 | P.PN_ITS ---
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 The patient is resting in bedside chair comfortably. Patient received home trilogy last night through her oxygen company [employer] and tolerated it very well overnight. Plan to allow patient off triology today unless napping or sleeping or if she becomes excessively tachypneic will use. She continues to have mild tachypnea and shortness of breath which will likely be her new baseline. She continues to complain of dry mouth that will continue to treat symptomatically with water intake and nasal saline rinses. She continues to have bilateral shoulder blade pain which is musculoskeletal and due to muscle tension noted on exam. Plan to start low-dose cyclobenzaprine as needed today. Continue to discuss COPD which is likely in stage and appropriateness of hospice in the near future and plan to arrange for hospice informational visit at home. She has no other complaints and denies headache, chest pain, abdominal pain, nausea, vomiting, fever, chills, dysuria, diarrhea or constipation. She is voiding via Mueller catheter and plan to remove today. She has not had a bowel movement since admission and a bowel regimen has been implemented. Plan to try suppository today. She is up minimally with assistance due to respiratory failure with tachypnea. Exam Vital Signs (past 8 hours): - 02/27/20 03:11 02/27/20 05:01 02/27/20 05:04 Temperature 98 F Pulse Rate 84 84 Respiratory Rate 17 Blood Pressure 145/72 H 145/72 H Pulse Oximetry 89 L 90 L 02/27/20 06:06 02/27/20 06:30 02/27/20 07:45 Temperature 97.2 F L Pulse Rate 94 H 84 Respiratory Rate 28 H 27 H Blood Pressure 134/67 Pulse Oximetry 89 L 89 L 89 L 02/27/20 08:48 02/27/20 10:13 Temperature Pulse Rate 91 H Respiratory Rate 28 H Blood Pressure Pulse Oximetry 89 L 93 Fraction of Inspired Oxygen 30 Oxygen Delivery Method Nasal Cannula Oxygen Flow Rate 3.5 Narrative Exam Narrative: General: Elderly female sitting in bed, well-developed, well-nourished, improved tachypnea, appropriately interactive. HEENT: Normocephalic, atraumatic. External ears without defect. Pupils equal, round, and reactive to light. Anicteric sclerae, moist conjunctivae, and no lid lag. Oropharynx free of erythema and cobble stoning with moist mucosa. BiPAP mask in place. Neck: Supple with full range of motion. No jugular venous distension. No lymphadenopathy or thyromegaly. Cardiovascular: Regular rhythm, tachycardic, without murmurs, rubs, or gallops appreciated. Pulmonary: Diminished throughout with improved aeration and clear to auscultation bilaterally in all lung bullock. No wheezes, rhonchi or crackles. Persistent tachypnea but improved with mild use of accessory muscles and pursed lip breathing. Abdomen: Soft, bowel sounds present, nontender, nondistended. No hepatosplenomegaly or masses appreciated. Extremities: No clubbing or cyanosis. Mild bilateral pitting edema to ankles with venous stasis changes. Skin: Normal temperature, turgor, and texture; no rash, ulcers, or subcutaneous nodules appreciated. Neurological: Cranial nerves grossly intact. Psychiatric: Normal mood and affect. Alert and oriented to person, place, and time. Objective Labs Result Diagrams: 02/26/20 04:35 02/26/20 04:35 Labs: Laboratory Results - last 24 hr 02/25/20 02/26/20 02/27/20 00:48 11:08 06:22 ABG pH 7.42 7.45 ABG pCO2 65.5 H* 62.7 H* ABG pO2 68 L 67 L ABG HCO3 43 H 44 H ABG Total CO2 45 H 45 H ABG O2 Saturation 93 L 93 L ABG Base Excess 18.0 H 20.0 H FiO2 0.30 0.40 L.pneumophila Antigen Negative Assessment & Plan Assessment & Plan narrative: Dorothy Metzger is a 74-year-old female with a past medical history of COPD emphysema type with chronic hypoxemic respiratory failure and oxygen dependence on 3 L of O2 at baseline and GERD who presented to the ED complaining of increasing shortness of breath for 2-3 days and right shoulder blade pain. 1. Acute on chronic hypoxemic and hypercarbic respiratory failure, present on admission. Improving. -Secondary to COPD exacerbation and probable pneumonia. -Initial ABG demonstrated compensated respiratory acidosis with hypoxemic and hypercapnic respiratory failure: pH 7.36, pO2 69, CO2 78.4 and bicarb 44 with SpO2 91% on FiO2 0.28. -CTA chest on 02/21/2020 demonstrated centrilobular emphysema with no acute cardiopulmonary process. No PE. -Consulted respiratory therapy for evaluation treatment. Continue BiPAP at current settings and monitor ABG as necessary to adjust settings. Continue supplemental oxygen to maintain oxygen saturations 88-92%. Do not want to over oxygenate patient as this will precipitate hypercarbia. Continue DuoNebs every 4 hours while awake, albuterol nebs every 2 hours as needed for shortness of breath or wheezing, and Pulmicort nebs twice daily. -Continue Ativan 1 mg every 4 hours as needed for shortness of breath/tachypnea or anxiety and morphine concentrate 2.5 mg every 4 hours as needed for shortness of breath and tachypnea. -Patient requires noninvasive ventilator due to severity of COPD, to decrease work of breathing and improve pulmonary status; interruption of respiratory support could lead to serious harm i.e, decline in health status, worsening of condition, increase risk of CO2 retention, untimely readmissions and/or . Patient received home trilogy through [employer] oxygen company [employer] yesterday evening 02/25 and will continue to educate her on use. -Discussed case with on-call pigment and lacquer mixer at [facility], Dr. Shields, over the phone on 02/24 who agreed with plan of care and has nothing further to add other than it may be several days before the patient starts to have any improvement and patient will likely do better on Trilogy. Patient has severe COPD with emphysema and it is unclear if this is end-stage COPD as patient has not had recent pulmonary function testing in at least 10 years. 2. Acute COPD exacerbation, present on admission. Improving. -Patient failed outpatient treatment with prednisone taper and azithromycin 250 mg daily as an outpatient (which she usually takes 3 times a week for prophylaxis of COPD exacerbation). -Consulted respiratory therapy for evaluation treatment. Continue BiPAP at current settings and monitor ABG as necessary to adjust settings. Continue supplemental oxygen to maintain oxygen saturations 88-92%. Do not want to over oxygenate patient as this will precipitate hypercarbia. Continue DuoNebs every 4 hours while awake, albuterol nebs every 2 hours as needed for shortness of breath or wheezing, and Pulmicort nebs twice daily. -Received methylprednisolone 125 mg IV x1 in ED. Continue methylprednisolone 60 mg IV every 8 hours and will titrate down to methylprednisolone 60 mg twice daily today and continue to slowly titrate down to prednisone possibly tomorrow. -Continue Mucinex 1200 mg twice daily. -Ordered cyclobenzaprine 5 mg 3 times daily as needed for muscle spasm as patient continues to have bilateral paraspinal muscle tension. -Discussed hospice as patient likely has end stage COPD and will arrange for informational visit at home. 3. Probable right lower lobe bacterial pneumonia, present on admission. Resolving. -Patient presented with shortness of breath, mildly productive cough, chest congestion, rhinitis, mild sore throat, recent tonsillar exudates and right shoulder blade pain. The patient has been on prednisone taper and azithromycin 250 mg daily as an outpatient. Of note, the patient usually takes azithromycin 250 mg 3 times a week for prophylaxis of COPD exacerbation. -Chest x-ray demonstrated emphysema with probable early right-sided pneumonia versus mild pulmonary edema. -CTA chest on 02/21/2020 demonstrated centrilobular emphysema with no acute cardiopulmonary process. No PE. -Initial WBC mildly elevated at 11.1 and procalcitonin negative at < 0.05. WBC trended up to 15.4 likely due to glucocorticoids and procalcitonin has remained negative at < 0.05. -Ordered complete pneumonia workup including: Respiratory viral PCR and COVID- 19 negative. Strep pneumoniae urine antigen, pending. Legionella urine antigen negative. Sputum fungal culture preliminarily has no growth and will continue to monitor for fungal growth. Blood culture x2 have no growth to date. -Continue azithromycin 250 mg daily and started ceftriaxone 2 g IV daily for 5 days to be completed tomorrow 02/27. Plan to restart prophylactic azithromycin 250 mg 3 times a week thereafter. 4. Hypertension without previous diagnosis, present on admission. Active. -Patient has been mildly hypertensive throughout hospitalization with SBP 130s to 150s and mildly tachycardic with heart rate 90 to 110s. -Started diltiazem 30 mg every 6 hours with improvement in SBP average 120's and HR 70-90's and will transition to Diltiazem CD 180 mg daily today. Patient does still have tachycardia at times that is related to her breathing and tachypnea. -Continue to monitor blood pressure closely. 5. GERD, chronic, present on admission. Stable. -Continue home famotidine 40 mg daily and equivalent of home PPI with Protonix 40 mg daily. 6. Venous insufficiency with lower extremity edema, chronic, present on admission. Stable. -Patient does not appear overtly fluid overloaded but does have mild bilateral pitting edema to pretibial area likely due to venous insufficiency. -ProBNP 259. -Chest x-ray demonstrated emphysema with probable early right-sided pneumonia versus mild pulmonary edema. -Echocardiogram demonstrated normal LV size and function with EF 65-70%, right ventricle grossly appears normal in size with probable normal systolic function, no significant valvular heart disease., RVSP estimated to be 18 mmHg plus the clinically estimated CVP which cannot be estimated on this exam. -Received furosemide 40 mg IV x1. Heart failure ruled out. -Continue to monitor strict I&Os and daily weights. Net -1.7 L. Code status: Limited Code (no CPR, cardioversion or intubation and allows for BiPAP or vasopressors if needed), surrogate decision maker is designated as patient's spouse Jonny Metzger VTE prophylaxis: Enoxaparin, SCDs Disposition: Patient will likely discharge home with home health in 1-2 days as COPD exacerbation resolves. Quality VTE Deep Vein Thrombosis/Pulmonary Embolism Present on Admission: No
[2020-02-27] MEDS: CYCLOBENZAPRINE 5 MG TABLET PO ×2 (11:33→18:53)
[2020-02-27] MEDS: ACETAMINOPHEN 325 MG TABLET 650 MG PO (11:33)
--- NOTE | 2020-02-27 11:41 | PT-IP ANOTE ---
checked with [facility] and stated that pt has decrease O2 sat even just sitting on EOB and needs ~ 10 min to recover. Checked with nurse and stated to wait to see pt in the afternoon after breathing tx and meds. will f/u with pt later this afternoon.
--- NOTE | 2020-02-27 11:54 | PT.IIE ---
Current Diagnoses Acute and chronic respiratory failure with hypoxia (02/24/20) Surgical History (Last Reviewed 02/24/20 @ 14:09 by Arianna Dent DO) Anesthesia (Resolved) H/O flexible sigmoidoscopy (Resolved 11/03/98) History of cataract removal with insertion of prosthetic lens (Resolved 06/17/12) History of cataract removal with insertion of prosthetic lens (Resolved 07/01/12) History of dental surgery (Resolved ~1982) Medical History (Last Reviewed 02/24/20 @ 14:09 by Arianna Dent DO) Asthma (Chronic ~2000) Boils (Resolved 2013) Cataract (Resolved 2012) COPD (chronic obstructive pulmonary disease) (Chronic ~2000) Dry mouth (Inactive) Leukoplakia (Acute) Measles (Resolved 1963) Pelvis fracture (Resolved ~1950) Rubella (Resolved) Physical Therapy Inpatient Evaluation/Re-Eval M1 PT/OT-IP Prior Functional Status Start: 02/27/20 12:38 Freq: NEEDED Status: Active Protocol: Document 02/27/20 11:54 AB (Rec: 02/27/20 12:53 AB [id number]) Medical Review Prior Functional Status Medical History Reviewed Yes Communication able to make needs known Mobility and Gait pt stated that she is independent with all mobilities and ambulation without AD Social History Household Members spouse Living Arrangements House Number of Floors (Floors) One Floor Number of Stairs To Enter/Railing? no steps to enter Home Environment High Toilet,Walk in Shower Home Equipment Shower Seat with Backrest,Hand Held Shower,Grab Bars In Shower Additional Social History Comment uses O2 at home: 3- 3 1/2 L M2 PT-IP Current Condition Start: 02/27/20 12:38 Freq: NEEDED Status: Active Protocol: Document 02/27/20 11:54 AB (Rec: 02/27/20 12:53 AB [id number]) Physical Therapy Current Condition Current Condition Evaluation Date 02/27/20 Treatment Diagnosis asthma exac; difficulty in walking Onset Date 02/24/20 Precautions Other Precautions O2 sat: currently on 5L/min M3 PT-IP Subjective Start: 02/27/20 12:38 Freq: NEEDED Status: Active Protocol: Document 02/27/20 11:54 AB (Rec: 02/27/20 12:53 AB [id number]) Subjective Physical Therapy Visit Type Type Initial Evaluation Visit Start Time 11:54 Visit Stop Time 12:16 Total Visit Minutes 22 Number of INTERNET MARKETING STRATEGIST Visits 0 Physical Therapy Visit Comments Patient Comments pt is agreeable to do PT M4 PT-IP Mobility and Gait Start: 02/27/20 12:38 Freq: NEEDED Status: Active Protocol: Document 02/27/20 11:54 AB (Rec: 02/27/20 12:53 AB [id number]) PT-Bed Mobility Assessment Supine to Sit Supine to Sit Standby Assistance Sit to Supine Sit to Supine Standby Assistance PT-Transfer Assessment Sit to and From Stand Sit to and from Stand Standby Assistance,Contact Guard Assistance,1 Person Assistance,Use of Upper Extremities Equipment Transfer Assistive Device Gait Belt,Front Wheeled Walker Orthotic/Prosthetic Devices or Brace: No Transfers Transfer Destination Toilet Transfer Technique ambulated using FWW Transfer Ability Level of Assist Standby Assistance,Contact Guard Assistance,1 Person Assistance,Use of Upper Extremities Comments Mobility Comments O2 sat at rest with 5-6L/mark : 89-94% at rest and with activity. completed sit to stand from chair SBA to CGA and cues. ambulated towards the bed ~ 12 ft. completed supine<>sit SBA. required increrase rest breaks in between tasks. completed sit to stand from EOB SBA to CGA and ambulated towards the toilet ~ 20 ft. pt requested to take a shower. Left pt with OT. Gait Assessment Gait Gait Assistance Required: Standby Assistance,Contact Guard Assist Distance (Feet) 20 Able to Maintain Weight Bearing Status Yes During Gait Assistive Devices Assistive Device Gait Belt,Front Wheeled Walker Orthotic/Prosthetic Devices or Brace: No Gait Deviations General Gait Pattern Decreased Stride Length, Decreased Feet Clearance Factors Limiting Gait Function Factors Limiting Gait Function Decreased Activity Tolerance, Decreased Strength,Poor Balance,Poor Safety Awareness, Respiratory Distress Comments Gait Comments pt tends to have FWW too far forward away from her during ambulation and cued to keep FWW close PT-Balance Assessment Sitting Balance and Reactions Static Sitting Balance Ability Good Dynamic Sitting Balance Ability Good Standing Balance and Reactions Static Standing Balance Ability Fair Dynamic Standing Balance Ability Fair Device Used FWW M5 PT-IP Objective Assessments Start: 02/27/20 12:38 Freq: NEEDED Status: Active Protocol: Document 02/27/20 11:54 AB (Rec: 02/27/20 12:53 AB [id number]) Orientation Orientation/Cognition Level of Alertness Alert Orientation Name,Age,Date,Place,Situation Safety Awareness Decreased Safety Awareness Memory Description No Deficits Noted Gross Range of Motion Lower Extremity ROM Assessment Within Functional Limits Strength Lower Extremity Strength Assessment Within Functional Limits Muscle Tone Muscle Tone WNL Yes M6 PT-IP Treatment Start: 02/27/20 12:38 Freq: NEEDED Status: Active Protocol: Document 02/27/20 11:54 AB (Rec: 02/27/20 12:53 AB [id number]) Physical Therapy Treatment Education Education Provided Safety M7 PT-IP Assessment and Plan Start: 02/27/20 12:38 Freq: NEEDED Status: Active Protocol: Document 02/27/20 11:54 AB (Rec: 02/27/20 12:53 AB [id number]) PT Summary Assessment and Plan Potential Rehabilitation Potential Good Status of Condition at Evaluation Evolving Summary Impairments Pain,ROM,Strength,Balance,Bed Mobility,Transfers,Gait, Activity Tolerance Assessment Summary pt requiring SBA to CGA with mobility using FWW but has decrease activity tolerance and requires frequent increase rest breaks in between tasks. pt lives with spouse and spouse will be able to assist pt. pt may bene fit from outpt PT/cardiopulmonary rehab to improve overall strength/ conditioning and activity tolerance. Goals Bed Mobility Goal Independent Transfer Goal Independent,Front Wheeled Walker,Four Wheeled Walker Gait Goal Independent,Front Wheel Walker ,Four Wheel Walker Gait Distance 150 Other Goals improve ambulation ~ 200 ft without AD SBA Days to Meet Goals 5 Frequency of Treatment Frequency Of Treatment Once a Day Treatment Plan Physical Therapy Treatment Plan Bed Mobility Training,Transfer Training,Gait Training, Therapeutic Exercise,Balance Retraining,Discharge Planning, Neuromuscular Re-ed Recommendations To Nursing Amount of Assist Needed 1 Person Assist Discharge Recommendations PT Discharge Recommendations Home with Assistance, Outpatient PT Equipment Needed for Home Before FWW/4WW if not safe without AD Discharge Transportation Needs at Discharge Private Vehicle
--- NOTE | 2020-02-27 12:43 | OT.IP.EVAL ---
Current Diagnoses Acute and chronic respiratory failure with hypoxia (02/24/20) Past Medical History (Last Reviewed 02/24/20 @ 14:09 by Arianna Dent DO) Asthma (Chronic ~2000) Boils (Resolved 2013) Cataract (Resolved 2012) COPD (chronic obstructive pulmonary disease) (Chronic ~2000) Dry mouth (Inactive) Leukoplakia (Acute) Measles (Resolved 1963) Pelvis fracture (Resolved ~1950) Rubella (Resolved) Surgical History (Last Reviewed 02/24/20 @ 14:09 by Arianna Dent DO) Anesthesia (Resolved) H/O flexible sigmoidoscopy (Resolved 11/03/98) History of cataract removal with insertion of prosthetic lens (Resolved 06/17/12) History of cataract removal with insertion of prosthetic lens (Resolved 07/01/12) History of dental surgery (Resolved ~1982) Occupational Therapy Inpatient Evaluation/Re-Eval M1 PT/OT-IP Prior Functional Status Start: 02/27/20 12:38 Freq: NEEDED Status: Active Protocol: Document 02/27/20 13:12 CGR (Rec: 02/27/20 13:23 CGR [email or web address]) Medical Review Prior Functional Status Medical History Reviewed Yes Communication able to make needs known Mobility and Gait pt stated that she is independent with all mobilities and ambulation without AD Activities of Daily Living and IADL's Pt states she was IND in all ADLs. Social History Household Members spouse Living Arrangements House Number of Floors (Floors) One Floor Number of Stairs To Enter/Railing? no steps to enter Home Environment High Toilet,Walk in Shower Home Equipment Shower Seat with Backrest,Hand Held Shower,Grab Bars In Shower Additional Social History Comment uses O2 at home: 3- 3 1/2 L M2 OT-IP Current Condition Start: 02/27/20 13:12 Freq: Status: Active Protocol: Document 02/27/20 13:12 CGR (Rec: 02/27/20 13:23 CGR [email or web address]) Occupational Therapy Current Condition Current Condition Evaluation Date 02/27/20 Treatment Diagnosis COPD and PNA Diagnosis Onset Date 02/24/20 M3 OT- IP Subjective and Pain Start: 02/27/20 13:12 Freq: Status: Active Protocol: Document 02/27/20 13:12 CGR (Rec: 02/27/20 13:23 CGR [email or web address]) OT- Subjective Occupational Therapy Visit Type Type Initial Evaluation Visit Start Time 11:54 Visit Stop Time 12:43 Total Visit Minutes 49 Notes Partial co-treat with P.T. OT Pain Assessment Pain When Pain Assessed At Rest Pain Present Pain Present Pain Reported Location right shoulder blade Scale Used states little pain Management Techniques Modification of Treatment,Re- positioning M4 OT- IP ADL's Start: 02/27/20 13:12 Freq: Status: Active Protocol: Document 02/27/20 13:12 CGR (Rec: 02/27/20 13:23 CGR [email or web address]) OT [id number] General Evaluation Self-Feeding Ability Independent Comments OT Self-Feeding Comments lunch OT ADL-Grooming General Evaluation Grooming Ability Maximum Assistance Areas Needing Assistance Combing/Brushing Hair Comments OT Grooming Comments d/t fatigue after shower OT ADL-Oral Care Comments Oral Care Comments not performed OT ADL-Dressing General Eval Upper Body Dressing Ability Standby Assistance Lower Body Dressing Ability Standby Assistance,Minimal Assistance Areas Needing Assistance Retrieving/Set-up of Clothing, Underpants/Brief,Socks Comments OT Dressing Comments Pt was able to don socks with sBA but needed min a for brief . OT ADL-Toileting Comments OT Toileting Comments not performed OT ADL-Bathing Bathing Type Bathing Type Shower General Evaluation Bathing Ability Standby Assistance Areas Needing Assistance Retrieving/Setting Up Items Devices Bathing Equipment Hand Held Shower Sprayer, Shower Chair with Arms,Grab Bars M5 OT- IP IADL's Start: 02/27/20 13:12 Freq: Status: Active Protocol: Document 02/27/20 13:12 CGR (Rec: 02/27/20 13:23 CGR [email or web address]) OT-Instrumental Activities of Daily Living Deficits IADL Deficits Identified No Deficits Home Safety Awareness Awareness of Need for Assistance at Home Good Awareness Ability to Problem Solve Emergency Able to Problem Solve Situations Medication Management Medication Management No Deficits Identified Money Management Money Management No Deficits Identified Meal Preparation Meal Preparation Caregiver Provides Assist Mgmt Analyst Mgmt Analyst Caregiver Provides Assist Driving Driving Comments 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 OT- IP Functional Cognition Start: 02/27/20 13:12 Freq: Status: Active Protocol: Document 02/27/20 13:12 CGR (Rec: 02/27/20 13:23 CGR [email or web address]) Cognitive Factors Limiting Selfcare Function Cognitive Ability Level of Alertness Alert Patient Orientation Name,Age,Birthday,Month,Date, Year,Day of Week,Place, Situation Attention Span Ability Capable of Focused Attention, Capable of Sustained Attention Ability to Follow Commands Able to Follow Multi-Step Commands Safety Awareness No Deficits Noted OT- Vision and Hearing OT- Hearing Assessment OT- Hearing Assessment Hearing Impaired OT- Vision Assessment Visual Acuity Glasses All The Time Visual Attentiveness WFL Occular Pursuits WFL Visual Convergence WFL Vision Assessment Comments Pt wears bifocals M7 OT- IP Mobility and Balance Start: 02/27/20 13:12 Freq: Status: Active Protocol: Document 02/27/20 13:12 CGR (Rec: 02/27/20 13:23 CGR [email or web address]) OT- Bed Mobility Assessment Rolling Type of Rolling Roll to Right Level of Assistance Standby Assistance Supine to Sit Supine to Sit Assist Standby Assistance Sit to Supine Sit to Supine Assist Standby Assistance Scooting Scooting to Edge of Bed Standby Assistance OT-Transfer Assessment Sit to and From Stand Sit to and from Stand Standby Assistance,Contact Guard Assistance Transfers Transfer Ability Standby Assistance,Contact Guard Assistance Technique Transfer Destination Bed,Chair,Shower Stall Transfer Technique Stand Step Pivot Devices Transfer Assistive Devices Gait Belt,Front Wheeled Walker Comments Mobility Comments Pt ambulated around the room and into the bathroom for shower with mulitple rest breaks and SOB. Pt on 5-6 L NC O2. OT- Balance Assessment Sitting Balance and Reactions Static Sitting Balance Ability Good Dynamic Sitting Balance Ability Good M8 OT- IP Objective Assessments Start: 02/27/20 13:12 Freq: Status: Active Protocol: Document 02/27/20 13:12 CGR (Rec: 02/27/20 13:23 CGR [email or web address]) OT Gross Range of Motion Upper Extremity Range of Motion Assessment Within Functional Limits OT Strength Upper Extremity Strength Assessment Bilaterally Impaired Comments Strength Comments 3+/5, poor strength throughout OT- Coordination Assessment Upper Extremity Finger to Nose Test Within Functional Limits Finger Tapping Test Within Functional Limits OT-Muscle Tone Assessment Muscle Tone WNL Yes OT Sensation Assessment Edema Edema Absent M9 OT- IP Assessment and Plan Start: 02/27/20 13:12 Freq: Status: Active Protocol: Document 02/27/20 13:12 CGR (Rec: 02/27/20 13:23 CGR [email or web address]) OT Summary Assessment and Plan Potential Rehabilitation Potential Good Analytic Complexity at Evaluation Low Summary OT Impairments Pain,Strength,Functional Mobility,Grooming,Dressing, Toileting,Bathing,Toilet Transfers,Shower Transfers, Activity Tolerance Progress Towards Goals Slow Progress due to Activity Tolerance Assessment Summary Pt presents as a low complexity evaluation s/p admit with respiratory failure . Pt presents with poor endurance that is impacting her ability to perform self care. Pt will benefit from OT services to address energy conservation and home safety. Recommendation is for pt to discharge home when medically stable. Goals Grooming Goal Independent Dressing Goal Independent Toileting Goal Independent Bathing Goal Independent Toilet Transfer Goal Independent Shower Transfer Goal Independent Days to Meet Goals 5 Frequency of Treatment Frequency Of Treatment Once a Day Treatment Plan OT Treatment Plan ADL Training,Functional Mobility,Patient/Family Education,Discharge Planning Other Treatment Recommendations and Next energy conservation. Treatment Focus Discharge Recommendations OT Discharge Recommendations Home with Assistance Home Equipment Needs TBD Transportation Needs at Discharge Private Vehicle
--- NOTE | 2020-02-27 14:31 | PC.NURSE ---
Pt up to chair [phone] on 3-4L NC. Pt showered with OT on 6L NC and was noted to be 91% SPO2 after getting back to chair. Pt does desat to 80% with minimal activity on 3L NC. She is tachypneic at rest mid 20s with increases to 40s RR (labored, pursed lip breathing, use of accessory muscles) with activity. Pt takes approx 10 minutes to recover with RR/SPO2 after minimal activity. Pt requested to go back to bed after lunch. Placed on trilogy with 3L O2 bleed in. After pt fell asleep, SPO2 noted to be sustained at 85% requiring increased O2 titration to 5L for SPO2 88-92%. Pt is AOx4 and using call light appropriately to make needs known.
[2020-02-27] MEDS: CEFTRIAXONE 2 GM/50 ML FROZ.PIGGY IV (14:53)
--- NOTE | 2020-02-27 18:43 | RT ---
Patient got mariah short of breath and developed a panic attack shortly after being put on her Trilogy. She stated that she had muscle spasms which caused her distress.
[2020-02-28] VITALS (12 sets, daily range): BP systolic 138–175; BP diastolic 65–82; PULSE 81–105; RESP 16–28; TEMP 36.1–36.8; O2SAT 90–97
[2020-02-28 05:15] LABS: BUN Creatinine Ratio 41.8 (6-22); Blood Urea Nitrogen 23 mg/dL (7-17); Calcium 9.1 mg/dL (8.4-10.2); Chloride 93 mmol/L (98-107); Estimated Glomerular Filt Rate > 60.0 mL/min (>60); Glucose 137 mg/dL (80-110); HEMOLYSIS < 15 (0-50); Magnesium 2.3 mg/dL (1.6-2.3); Potassium 4.3 mmol/L (3.4-5.1); Sodium 136 mmol/L (137-145)
[2020-02-28 05:17] LABS: Add Manual Diff / Slide Review NO; Basophils Absolute Auto 0 /uL (0-100); Basophils Percent Auto 0.1 % (0-2); Eosinophils Absolute Auto 0 /uL (0-450); Hematocrit 35.5 % (36-46); Hemoglobin 11.4 g/dL (12.0-16.0); Lymphocytes Absolute Auto 300 /uL (1100-4500); Lymphocytes Percent Auto 2.4 % (25-40); Mean Corpuscular Hemoglobin 30.1 PG (26-34); Mean Corpuscular Volume 94.1 fL (80-100); Monocytes Absolute Auto 300 /uL (0-900); Monocytes Percent Auto 2.7 % (3-14); Neutrophils Absolute Auto 11800 /uL (1500-7000); Neutrophils Percent Auto 94.8 % (50-75); Platelet Count 253 X10^3/uL (150-400); Red Blood Cell Count 3.77 X10^6/uL (4.0-5.2); White Blood Cell Count 12.5 X10^3/uL (4.5-11.0)
[2020-02-28 05:31] LABS: Carbon Dioxide 45 mmol/L (22-32)
[2020-02-28 05:50] LABS: Procalcitonin < 0.05 ng/mL (<0.5)
[2020-02-28 06:01] LABS: Fractionated Inspired Oxygen 50; HCO3 ABG 44 mmol/L (22-26); Oxygen Saturation ABG 92 % (95-100); PO2 ABG 66 mmHg (80-100); TCO2 ABG 46 mmol/L (21-31); pH ABG 7.44 (7.35-7.45)
--- NOTE | 2020-02-28 06:05 | PC.NURSE ---
Informed Ken Jordan of pt's C02 result of 45 for today's am labs and she wants ABG done to reflect a more accurate values. RT informed and ABG obtained. RT unable to adjust settings on pt's trilogy. ABG result given to Ken Jordan and informed of RT not being able to do adjustments.
[2020-02-28] MEDS: ALBUTEROL/IPRATROPIUM 3 ML AMPUL INH ×3 (08:24→14:19)
[2020-02-28] MEDS: BUDESONIDE 0.5 MG/2 ML NEB INH (08:24)
[2020-02-28] MEDS: ACETAMINOPHEN 325 MG TABLET 650 MG PO (08:58)
[2020-02-28] MEDS: CYCLOBENZAPRINE 5 MG TABLET PO (08:59)
[2020-02-28] MEDS: ASPIRIN 81 MG CHEW TAB PO (09:00)
[2020-02-28] MEDS: FAMOTIDINE 20 MG TABLET 40 MG PO (09:00)
[2020-02-28] MEDS: PANTOPRAZOLE 40 MG TABLET PO (09:00)
[2020-02-28] MEDS: guaiFENesin ER 600 MG TAB 1200 MG PO (09:00)
[2020-02-28] MEDS: dilTIAZem CD 180 MG CAP PO (09:01)
[2020-02-28] MEDS: ENOXAPARIN 40 MG/0.4 ML SYRINGE SUBCUT (09:01)
[2020-02-28] MEDS: AZITHROMYCIN 250 MG TABLET PO (09:01)
[2020-02-28] MEDS: methylPREDNISolone 125 MG/2 ML VIAL 60 MG IV (09:02)
--- NOTE | 2020-02-28 09:19 | DI.CT.S_ITS ---
PROCEDURE: CT THORACIC SPINE WO CON INDICATIONS: thoracic pain, r/o comp fx TECHNIQUE: Noncontrast 3 mm thick sections acquired through the region of interest in the thoracic spine. Sagittal and coronal reformats were then constructed. For radiation dose reduction, the following was used: automated exposure control. COMPARISON: [facility], CT, CT ANGIO CHEST PE PROTOCOL, 02/21/2020, 21:13. [facility], CR, XR CHEST 1V, 02/24/2020, 8:21. [facility], CR, XR CHEST 1V, 02/25/2020, 12:13. FINDINGS: Image quality: Diagnostic, with note made of motion artifact. Bones: There is a compression deformity seen involving the inferior endplate of T5, with approximately 50% loss of height centrally. No significant posterior displacement of fracture fragments can be seen. This fracture is not seen on the prior recent CT of the chest performed on 02/21/2020, even in retrospect. No additional fractures are detected. Degenerative changes are seen throughout. There is normal overall bony alignment. No suspicious sclerotic or lytic bony lesions. Central spinal canal is of normal overall caliber. Soft tissues: No paravertebral masses or hematomas. Visualized posteromedial lungs appear clear. Incidental note is made of an azygos lobe. Atherosclerotic calcification is noted. IMPRESSION: 50% compression deformity involving the inferior endplate of T5. This fracture is acute and cannot be seen on the 02/21/[address], even in retrospect. Incidental note is made of: Azygos lobe Atherosclerotic calcification Dictated by: Amador Tovar M.D. on 02/28/2020 at 9:42 Approved by: Amador Tovar M.D. on 02/28/2020 at 9:47
[2020-02-28] MEDS: MAGNESIUM HYDROXIDE 30 ML UDC PO (09:39)
[2020-02-28] MEDS: HYDROCODONE/ACET 5/325 TABLET 1 TAB PO (09:39)
--- NOTE | 2020-02-28 10:11 | PM.DS.1 ---
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 The patient reports she has had been having right shoulder blade pain for 1 week. She previously was seen in outpatient clinic and started on a steroid taper and instructed to take her prophylactic azithromycin 250 mg daily for 1 week which she usually takes 3 times a week for COPD exacerbation prophylaxis. She reports that for the last several days her right shoulder blade pain has been persistent and now is accompanied with shortness of breath. She was unable to take her Symbicort and Spiriva today due to shortness of breath. She has had mild productive cough and lung congestion. She she also endorses rhinitis, sore throat, and tonsillar exudate. She reports she had to increase her oxygen at home to 3.5 L to breathe more easily. She is also noted increasing daytime sleepiness. The patient is is quite obviously short of breath with tachypnea, mild conversational dyspnea and pursed lip breathing. She does endorse mild subjective fever and chills the last several days. She has no other complaints and denies headache, chest pain or pressure, abdominal pain, nausea, vomiting, dysuria, diarrhea or constipation. She denies sick contacts. She was tested for COVID-19 and respiratory viruses in the ED which were all negative. She reports she has received her influenza and pneumonia vaccinations. She has continued a short steroid taper and azithromycin daily. ED course: Vital signs: Temperature 98? F, blood pressure 139/63, heart rate 106, respiratory rate 29, pulse ox 92% FiO2 0.28. Chest x-ray demonstrated emphysema with right lower lobe haziness and possible early pneumonia. WBC 11.1 with PMNs 75.7. Lactate normal at 0.8. ABG demonstrated compensated respiratory acidosis with hypercapnic respiratory failure with: pH 7.36, pO2 69, CO2 78.4 and bicarb 44 with SpO2 91% on FiO2 0.28. She received methylprednisolone 125 mg IV x1. She was placed on heated high-flow oxygen with FiO2 0.35 and 40 L flow. She was admitted as an inpatient to intensive care unit to treat hypercapnic respiratory failure with BiPAP, COPD exacerbation and possible bacterial pneumonia. Discharge Providers Provider Date of admission: 02/24/20 10:18 Discharge Date: 02/28/20 Primary care physician: Lyndsay Ruelas DO Consults: 02/24/20 08:16 Consult to Respiratory Therapy Evaluate & Treat Comment: Physician Instructions: Evaluate and treat 02/24/20 11:41 Consult to Respiratory Therapy Evaluate & Treat Comment: Physician Instructions: Evaluate and treat 02/27/20 07:58 Consult to Occupational Therapy Evaluate & Treat Comment: Physician Instructions: Evaluate and treat Consult to Physical Therapy Evaluate & Treat Comment: Physician Instructions: Evaluate and Treat Discharge provider: Kevin Robins MD Summary Hospital Course Discharge Diagnosis: 1. Acute on chronic hypoxemic and hypercarbic respiratory failure 2. Acute COPD exacerbation 3. Acute T5 compression fracture likely osteoporosis, present on admission 3. Hypertension 4. GERD 5. Chronic venous insufficiency of bilateral lower extremities CTA: No acute pulmonary embolus. Mild centrilobar emphysema. Pulmonary scar at bilateral lung bases unchanged from prior CT. Thoracic and coronary artery atheromatous calcifications. Echo: Normal LV and RV, LVEF 65-70%, no significant valvular heart disease Thoracic CT: 50% compression deformity involving the inferior endplate of T5. This fracture is acute and cannot be seen on the 02/21/[address], even in retrospect. Hospital Course: Patient was admitted due to acute on chronic respiratory failure from COPD exacerbation. She was started on Rocephin and Solu-Medrol. Her Zithromax was increased from 3 days a week to daily for anti-inflammatory effect. Her sputum culture from 02/23 grew yeast. Her repeat sputum culture from 02/25 Is growing yeast and Gram-negative bacilli which has not been identified. Respiratory status has improved with antibiotic and steroid management and she was started on trilogy which has been quite beneficial. She will be going home with trilogy. With her COPD her ABG initial showed pCO2 in the 70s and subsequent ABG pCO2 in the mid 60s and she appears well compensated. CTA scan did not show pulmonary embolism. She does have bibasilar scarring. There is no strong evidence of a pneumonia. She will complete course of antibiotic with cefuroxime and continue on her usual azithromycin 3 days a week. She will also be on a gradual prednisone taper over the next 25 days. She had been started on prednisone about 2 weeks prior to this admission. Patient has been complaining of acute mid-thoracic back pain which began prior to admission. Thoracic CT showed T5 compression fracture which appears acute in nature. Patient has relief with single hydrocodone tablet tried today. I am discharging her on hydrocodone acetaminophen 1 tab twice daily as needed and calcitonin nasal spray. Patient has persistent elevated blood pressure and sinus tachycardia. She was started on diltiazem which she will continue on discharge. Patient has late stage COPD. Dr Dent discussed goals of care and with patient, including possible hospice referral, and she expressed interest in preliminary Hospice informational visit which is arranged for her upon return home. She will discuss long-term planning further with her PCP, Dr Ruelas. Exam Vital Signs (past 8 hours): - 02/28/20 04:13 02/28/20 06:03 02/28/20 08:00 Temperature 98.2 F 97.0 F L Pulse Rate 81 102 H 95 H Respiratory Rate 16 18 26 H Blood Pressure 138/65 154/82 H Pulse Oximetry 93 92 93 02/28/20 08:25 Temperature Pulse Rate 95 H Respiratory Rate 18 Blood Pressure Pulse Oximetry 95 Fraction of Inspired Oxygen 30 Oxygen Delivery Method Nasal Cannula Oxygen Flow Rate 5 Objective Labs Result Diagrams: 02/28/20 04:38 02/28/20 04:38 Labs: Laboratory Results - last 24 hr 02/28/20 02/28/20 02/28/20 04:38 04:38 04:38 WBC 12.5 H RBC 3.77 L Hgb 11.4 L Hct 35.5 L MCV 94.1 MCH 30.1 MCHC 32.0 RDW 13.0 Plt Count 253 Neut % (Auto) 94.8 H Lymph % (Auto) 2.4 L [place] % (Auto) 2.7 L Eos % (Auto) 0.0 L Baso % (Auto) 0.1 Neut # (Auto) 78791 H Lymph # (Auto) 300 L [place] # (Auto) 300 Eos # (Auto) 0 Baso # (Auto) 0 ABG pH ABG pCO2 ABG pO2 ABG HCO3 ABG Total CO2 ABG O2 Saturation ABG Base Excess FiO2 Sodium 136 L Potassium 4.3 Chloride 93 L Carbon Dioxide 45 H* BUN 23 H Creatinine 0.55 Estimated GFR > 60.0 BUN/Creatinine Ratio 41.8 H Glucose 137 H Calcium 9.1 Magnesium 2.3 Procalcitonin < 0.05 02/28/20 05:40 WBC RBC Hgb Hct MCV MCH MCHC RDW Plt Count Neut % (Auto) Lymph % (Auto) [place] % (Auto) Eos % (Auto) Baso % (Auto) Neut # (Auto) Lymph # (Auto) [place] # (Auto) Eos # (Auto) Baso # (Auto) ABG pH 7.44 ABG pCO2 65.0 H* ABG pO2 66 L ABG HCO3 44 H ABG Total CO2 46 H ABG O2 Saturation 92 L ABG Base Excess 20.0 H FiO2 50 Sodium Potassium Chloride Carbon Dioxide BUN Creatinine Estimated GFR BUN/Creatinine Ratio Glucose Calcium Magnesium Procalcitonin Discharge Plan Discharge Plan Patient Disposition: Home Provider Discharge Comment: You were treated for COPD exacerbation. You also have back pain due to T5 compression fracture. Take medications as prescribed and follow up with Dr Ruelas in clinic. Use Trilogy during hours of sleep and during daytime as needed. Discharge orders & Medications Prescriptions: New cefuroxime axetil 500 mg tablet 500 mg PO BID Qty: 20 RF: 0 prednisone 10 mg tablet See Rx Instructions .ROUTE .COMPLEX Qty: 25 RF: 0 hydrocodone-acetaminophen 5-325 mg tablet 1 tab PO BID PRN (Reason: pain) Qty: 20 RF: 0 calcitonin (salmon) 200 unit/actuation spray,non-aerosol 1 spray intranasal (ALT) DAILY Qty: 3.7 RF: 0 diltiazem HCl [Cardizem CD] 180 mg Capsule,Extended Release 24hr 180 mg PO DAILY Qty: 30 RF: 0 Continued aspirin 81 mg Tablet,Chewable 81 mg PO DAILY Qty: 0 RF: 0 albuterol sulfate [Ventolin HFA] 90 mcg/actuation HFA aerosol inhaler 2 puff INHALATION Q4HP PRN (Reason: shortness of breath or wheezing) Qty: 6 RF: 3 Symbicort 160-4.5 mcg/actuation HFA aerosol inhaler 2 puff Inhalation BID Qty: 30 RF: 3 ipratropium bromide 0.03 % spray,non-aerosol 2 spray NASAL BID Qty: 30 RF: 5 azithromycin 250 mg tablet 250 mg PO 3XW Qty: 36 RF: 0 Hold Instructions: treating acute sinusitus Spiriva with HandiHaler 18 mcg capsule, w/inhalation device 18 mcg INHALATION QDAY Qty: 90 RF: 3 omeprazole 40 mg capsule,delayed release(DR/EC) 40 mg PO DAILY Qty: 30 RF: 1 clotrimazole 10 mg compa 10 mg MM 5XD Qty: 60 RF: 0 potassium chloride [Klor-Con M20] 20 mEq tablet,ER particles/crystals 10 meq PO QAM RF: 0 famotidine 20 mg tablet 40 mg PO DAILY RF: 0 Discontinued prednisone 5 mg tablet 15 mg PO DAILY RF: 0 No Action (DME) Disabled Parking Permit Qty: 1 RF: 0 Follow up/Referrals: Lyndsay Ruelas DO [Primary Care Provider] - Discharge Health Status Multidrug resistant organism: No MDRO Diet/Activity/Treatments Diet: Diet as Tolerated Discharge Data Primary Care Provider: Lyndsay Ruelas Quality VTE Deep Vein Thrombosis/Pulmonary Embolism Present on Admission: No
[2020-02-28] MEDS: BISACODYL 5 MG TABLET 10 MG PO (11:35)
[2020-02-28] MEDS: polyethylene glycoL 3350 17 GM POWD.PACK PO (11:35)
--- NOTE | 2020-02-28 12:22 | CM.DPNOTE ---
DCP: continued: case received, EMR reviewed. Met today with pt during Team Bedside Rounds and then afterwards for 05/[address] Robins noted in Rounds that he was concerned re pt's ongoing sharp mid back pain, suspected compression fracture and CT was ordered. He noted that PT should continue today, work on pt's bowels and that she might be able to d/c to home later today. Met then with pt after noting ? of need for HH services and Dr. Dent's discussion of yesterday re ? hospice info visit. Pt confirmed that she would appreciate a Hospice information visit at home so that I will know more about it for the future. She will also discuss this with her PCP Dr. Ruelas. Re: HH: pt confirmed she had never had this service: Explained the basics and the recommendation for HH RN/OT/PT/CRYSTALLOGRAPHER. Pt agrees she will be homebound for now. She will be going home on a new Trilogy which she will use anytime she is napping or at night. She will benefit from home safely eval, energy conservation techniques and improvement in functional abilities and work arounds for her back pain (at time of this documentation CT has identifies T5 compression fracture). HH agency Medicare list: discussed: decision: [facility]/referral to [facility]/ accepted. A d/c order in now in and Dr. Robins has just finished updating pt. Checked in with pt who expressed some concerns re her Trilogy management: RT will be seeing her shortly to provide more information and let her know the protocol with [facility] followup re this new therapy for pt. [facility] brochure provided. Clinical info plus orders and Face/Face are faxed now to [facility]. [facility] has been notified re info visit request: Josef says these are done only over the phone during this COVID time and someone will reach out to pt this week. DC summary and face sheet are faxed to [facility] now. P: home this afternoon with spouse/Trilogy/HH and as per details noted. Pt states she feels comfortable with the d/c for today.
--- NOTE | 2020-02-28 13:53 | PC.NURSE ---
Addendum entered by Anny Davenport R.N. 02/28/20 15:23: Spouse Jonny picked all Rx at [facility] prior to discharge and has all Rx on hand. Discussed importance of antibiotic adherence, and PO steroid schedule for weaning. Answered all questions. Home via private vehicle accompanied by . Original Note: Day shift note: Discharge instructions given to patient and spouse Jonny, discussed importance of F/U with Dr. Ruelas, new medications, home with home health arrangement, and s/sx of infection. Both verbalized understanding of instructions. Continue on O2 at 3L via NC, sats 93%, dyspnea at rest, speaking in short sentences, states breathing effort improved from previous day. Medicated with [place] PO 1 tab for right upper back pain, reports significant improvement. Up OOB to chair and bed, with SBA. Patient to go home with Trilogy set up, RT will provide education and home care instructions.
[2020-02-29 09:30] LABS: PCO2 ABG 65.2 mmHg (35-45)
== END 2020-02-28 15:15 | disposition home health service (06) | DRG 189 ==
LOC: ED 10:06 → AC 10:18 → ICU 12:03 → AC 02-26 16:15
PROVIDERS: Admitting Provider Internal Medicine; Emergency Provider Emergency Medicine; PCP Family Medicine; Referring Provider Emergency Medicine; Visit Provider Internal Medicine
DX: J96.21 Acute and chronic respiratory failure with hypoxia (principal); J44.1 Chronic obstructive pulmonary disease with (acute) exacerbation; M80.88XA Other osteoporosis with current pathological fracture, vertebra(e), initial encounter for fracture; J96.22 Acute and chronic respiratory failure with hypercapnia; Z99.81 Dependence on supplemental oxygen; K21.9 Gastro-esophageal reflux disease without esophagitis; I87.2 Venous insufficiency (chronic) (peripheral); I10 Essential (primary) hypertension; R00.0 Tachycardia, unspecified; Z87.891 Personal history of nicotine dependence; Z11.59 Encounter for screening for other viral diseases
CPT/HCPCS: 36415; 36600; 71045; 71046; 71275; 72128; 80048; 80053; 81001; 82550; 82805; 83605; 83735; 83880; 84145; 84443; 84484; 85025; 85379; 87040; 87070; 87077; 87102; 87186; 87205; 87449; 87633; 87635; 87797; 87899; 93005; 93306; 94640; 94660; 94760; 94762; 96374; 96375; 97162; 97165; 97535; 99284; 99285; A9270; J0696; J1170; J1650; J1885; J1940; J2060; J2270; J2405; J2765; J2930; J7613; Q9957; Q9967